=== PATIENT | male | born 1960 | race Caucasian/White ===

== ENCOUNTER 2018-07-19 11:09 | Outpatient (CLI) | payer MEDICAID, SELFPAY ==
[2018-07-19 11:48] LABS: INR 1.1 (1.0-3.5); Prothrombin Time 11.1 sec (9.3-10.8)
== END 2018-07-19 11:29 ==
PROVIDERS: PCP Physician Assistant Medical; Visit Provider Internal Medicine Cardiovascular Disease
DX: I48.0 Paroxysmal atrial fibrillation (principal)
CPT/HCPCS: 36415; 85610

== ENCOUNTER 2018-07-23 12:13 | Outpatient (CLI) | payer MEDICAID, SELFPAY ==
[2018-07-23 12:49] LABS: INR 1.4 (1.0-3.5); Prothrombin Time 13.6 sec (9.3-10.8)
== END 2018-07-23 12:33 ==
PROVIDERS: PCP Physician Assistant Medical; Visit Provider Internal Medicine Cardiovascular Disease
DX: I48.0 Paroxysmal atrial fibrillation (principal); Z79.01 Long term (current) use of anticoagulants
CPT/HCPCS: 36415; 85610

== ENCOUNTER 2018-07-30 13:39 | Outpatient (CLI) | payer MEDICAID, SELFPAY ==
[2018-07-30 14:26] LABS: INR 1.6 (1.0-3.5); Prothrombin Time 15.8 sec (9.3-10.8)
== END 2018-07-30 13:59 ==
PROVIDERS: PCP Physician Assistant Medical; Visit Provider Internal Medicine Cardiovascular Disease
DX: I48.0 Paroxysmal atrial fibrillation (principal); Z79.01 Long term (current) use of anticoagulants
CPT/HCPCS: 36415; 85610

== ENCOUNTER 2018-08-06 10:15 | Outpatient (CLI) | payer MEDICAID, SELFPAY ==
[2018-08-06 12:48] LABS: Prothrombin Time 20.3 sec (9.3-11.0)
== END 2018-08-06 10:35 ==
PROVIDERS: PCP Physician Assistant Medical; Visit Provider Internal Medicine Cardiovascular Disease
DX: I48.0 Paroxysmal atrial fibrillation (principal); Z79.01 Long term (current) use of anticoagulants
CPT/HCPCS: 36415; 85610

== ENCOUNTER 2018-08-13 09:52 | Outpatient (CLI) | payer MEDICAID, SELFPAY ==
[2018-08-13 10:20] LABS: INR 1.7 (1.0-3.5); Prothrombin Time 16.7 sec (9.3-11.0)
== END 2018-08-13 10:12 ==
PROVIDERS: PCP Physician Assistant Medical; Visit Provider Internal Medicine Cardiovascular Disease
DX: I48.0 Paroxysmal atrial fibrillation (principal)
CPT/HCPCS: 36415; 85610

== ENCOUNTER 2018-08-20 11:21 | Outpatient (CLI) | payer MEDICAID, SELFPAY ==
[2018-08-20 12:05] LABS: INR 1.6 (1.0-3.5); Prothrombin Time 16.1 sec (9.3-11.0)
== END 2018-08-20 11:41 ==
PROVIDERS: PCP Physician Assistant Medical; Visit Provider Internal Medicine Cardiovascular Disease
DX: I48.0 Paroxysmal atrial fibrillation (principal)
CPT/HCPCS: 36415; 85610

== ENCOUNTER 2018-08-31 09:54 | Outpatient (CLI) | payer MEDICAID, SELFPAY ==
[2018-08-31 10:49] LABS: INR 1.9 (0.9-1.1); Prothrombin Time 19.3 sec (9.3-11.0)
== END 2018-08-31 10:14 ==
PROVIDERS: PCP Physician Assistant Medical; Visit Provider Internal Medicine Cardiovascular Disease
DX: I48.0 Paroxysmal atrial fibrillation (principal); Z79.01 Long term (current) use of anticoagulants
CPT/HCPCS: 36415; 85610

== ENCOUNTER 2018-09-07 10:24 | Outpatient (CLI) | payer MEDICAID, SELFPAY ==
[2018-09-07 11:29] LABS: INR 2.3 (0.9-1.1)
== END 2018-09-07 10:44 ==
PROVIDERS: PCP Physician Assistant Medical; Visit Provider Internal Medicine Cardiovascular Disease
DX: I48.0 Paroxysmal atrial fibrillation (principal); Z79.01 Long term (current) use of anticoagulants
CPT/HCPCS: 36415; 85610

== ENCOUNTER 2018-09-14 11:25 | Outpatient (CLI) | payer MEDICAID, SELFPAY ==
[2018-09-14 12:05] LABS: INR 2.3 (0.9-1.1); Prothrombin Time 22.8 sec (9.3-11.0)
== END 2018-09-14 11:45 ==
PROVIDERS: PCP Physician Assistant Medical; Visit Provider Internal Medicine Cardiovascular Disease
DX: I48.0 Paroxysmal atrial fibrillation (principal); Z79.01 Long term (current) use of anticoagulants
CPT/HCPCS: 36415; 85610

== ENCOUNTER 2018-10-05 10:03 | Outpatient (CLI) | payer MEDICAID, SELFPAY ==
[2018-10-05 10:33] LABS: INR 1.7 (0.9-1.1); Prothrombin Time 16.7 sec (9.3-11.0)
== END 2018-10-05 10:23 ==
PROVIDERS: PCP Physician Assistant Medical; Visit Provider Internal Medicine Cardiovascular Disease
DX: I48.0 Paroxysmal atrial fibrillation (principal)
CPT/HCPCS: 36415; 85610

== ENCOUNTER 2018-10-12 11:43 | Outpatient (CLI) | payer MEDICAID, SELFPAY ==
[2018-10-12 12:56] LABS: INR 2.2 (0.9-1.1); Prothrombin Time 22.3 sec (9.3-11.0)
== END 2018-10-12 12:03 ==
PROVIDERS: PCP Physician Assistant Medical; Visit Provider Internal Medicine Cardiovascular Disease
DX: I48.0 Paroxysmal atrial fibrillation (principal); Z79.01 Long term (current) use of anticoagulants
CPT/HCPCS: 36415; 85610

== ENCOUNTER 2018-10-19 12:37 | Outpatient (CLI) | payer MEDICAID, SELFPAY ==
[2018-10-19 14:45] LABS: INR 2.1 (0.9-1.1); Prothrombin Time 21.1 sec (9.3-11.0)
== END 2018-10-19 12:57 ==
PROVIDERS: PCP Physician Assistant Medical; Visit Provider Internal Medicine Cardiovascular Disease
DX: I48.0 Paroxysmal atrial fibrillation (principal); Z79.01 Long term (current) use of anticoagulants
CPT/HCPCS: 36415; 85610

== ENCOUNTER 2018-10-26 11:17 | Outpatient (CLI) | payer MEDICAID, SELFPAY ==
[2018-10-26 12:25] LABS: Prothrombin Time 20.6 sec (9.3-11.0)
== END 2018-10-26 11:37 ==
PROVIDERS: PCP Physician Assistant Medical; Visit Provider Internal Medicine Cardiovascular Disease
DX: I48.0 Paroxysmal atrial fibrillation (principal); Z79.01 Long term (current) use of anticoagulants
CPT/HCPCS: 36415; 85610

== ENCOUNTER 2018-11-09 11:14 | Outpatient (CLI) | payer MEDICAID, SELFPAY ==
[2018-11-09 12:03] LABS: INR 1.8 (0.9-1.1); Prothrombin Time 18.4 sec (9.3-11.0)
== END 2018-11-09 11:34 ==
PROVIDERS: PCP Physician Assistant Medical; Visit Provider Internal Medicine Cardiovascular Disease
DX: I48.0 Paroxysmal atrial fibrillation (principal)
CPT/HCPCS: 36415; 85610

== ENCOUNTER 2018-11-16 12:18 | Outpatient (CLI) | payer MEDICAID, SELFPAY ==
[2018-11-16 12:55] LABS: INR 1.9 (0.9-1.1); Prothrombin Time 19.4 sec (9.3-11.0)
== END 2018-11-16 12:38 ==
PROVIDERS: PCP Physician Assistant Medical; Visit Provider Internal Medicine Cardiovascular Disease
DX: I48.0 Paroxysmal atrial fibrillation (principal)
CPT/HCPCS: 36415; 85610

== ENCOUNTER 2018-11-23 10:15 | Outpatient (CLI) | payer MEDICAID, SELFPAY ==
[2018-11-23 10:40] LABS: Prothrombin Time 20.2 sec (9.3-11.0)
== END 2018-11-23 10:35 ==
PROVIDERS: PCP Nurse Practitioner Family; Visit Provider Internal Medicine Cardiovascular Disease
DX: I48.0 Paroxysmal atrial fibrillation (principal); Z79.01 Long term (current) use of anticoagulants
CPT/HCPCS: 36415; 85610

== ENCOUNTER 2018-11-30 10:26 | Outpatient (CLI) | payer MEDICAID, SELFPAY ==
[2018-11-30 11:14] LABS: Prothrombin Time 20.4 sec (9.3-11.0)
== END 2018-11-30 10:46 ==
PROVIDERS: PCP Nurse Practitioner Family; Visit Provider Internal Medicine Cardiovascular Disease
DX: I48.0 Paroxysmal atrial fibrillation (principal); Z79.01 Long term (current) use of anticoagulants
CPT/HCPCS: 36415; 85610

== ENCOUNTER 2018-12-14 11:17 | Outpatient (CLI) | payer MEDICAID, SELFPAY ==
[2018-12-14 12:36] LABS: INR 2.4 (0.9-1.1)
== END 2018-12-14 11:37 ==
PROVIDERS: PCP Nurse Practitioner Family; Visit Provider Internal Medicine Cardiovascular Disease
DX: I48.0 Paroxysmal atrial fibrillation (principal); Z79.01 Long term (current) use of anticoagulants
CPT/HCPCS: 36415; 85610

== ENCOUNTER 2019-01-11 15:05 | Outpatient (CLI) | payer MEDICAID, SELFPAY ==
[2019-01-11 15:38] LABS: Prothrombin Time 25.7 sec (9.3-11.0)
[2019-01-11 15:40] LABS: INR 2.5 (0.9-1.1)
== END 2019-01-11 15:25 ==
PROVIDERS: PCP Nurse Practitioner Family; Visit Provider Internal Medicine Cardiovascular Disease
DX: I48.0 Paroxysmal atrial fibrillation (principal); Z79.01 Long term (current) use of anticoagulants
CPT/HCPCS: 36415; 85610

== ENCOUNTER 2019-02-14 10:24 | Outpatient (CLI) | payer MEDICAID, SELFPAY ==
[2019-02-14 11:19] LABS: Prothrombin Time 25.7 sec (9.3-11.0)
[2019-02-14 11:23] LABS: INR 2.5 (0.9-1.1)
== END 2019-02-14 10:44 ==
PROVIDERS: PCP Nurse Practitioner Family; Visit Provider Internal Medicine Cardiovascular Disease
DX: I48.0 Paroxysmal atrial fibrillation (principal)
CPT/HCPCS: 36415; 85610

== ENCOUNTER 2019-04-11 10:05 | Outpatient (CLI) | payer MEDICAID, SELFPAY ==
[2019-04-11 10:42] LABS: HCT 46.2 % (40.0-50.0); HGB 15.5 g/dL (13.5-17.5); Mean Corp. HGB Concentration 33.5 g/dL (32.0-36.0); Mean Corpuscular Hemoglobin 28.8 pg (27.0-33.0); Mean Corpuscular Volume 85.7 fL (80-95); Mean Platelet Volume 10.5 fL (8.0-11.0); RBC 5.39 m/cumm (4.50-6.00); RBC Distribution Width 14.1 % (11.8-14.1); White Blood Cell Count 3.69 k/cumm (4.4-10.8)
[2019-04-11 10:45] LABS: INR 2.7 (0.9-1.1); Prothrombin Time 26.8 sec (9.3-11.0)
[2019-04-11 11:12] LABS: Platelet Count 84 x1000/uL (130-400)
[2019-04-11 11:25] LABS: ALT 37 U/L (12-78); AST 22 U/L (15-37); Albumin 3.8 g/dL (3.4-5.0); Alkaline Phosphatase 63 U/L (46-116); Anion Gap 14.2 mmol/L (3-11); BUN 14 mg/dL (7-18); C-Reactive Protein 0.17 mg/dL (0.0-0.3); CO2 24.8 mmol/L (21.0-32.0); Calcium 8.9 mg/dL (8.5-10.1); Chloride 103 mmol/L (98-107); Glucose 209 mg/dL (70-100); Potassium 4.2 mmol/L (3.5-5.1); Sodium 142 mmol/L (136-145); Total Protein 7.6 g/dL (6.4-8.2)
[2019-04-11 12:01] LABS: ESR 13 mm/hr (1-20)
== END 2019-04-11 10:25 ==
PROVIDERS: PCP Family Medicine; Visit Provider Internal Medicine Cardiovascular Disease
DX: I10 Essential (primary) hypertension (principal); E11.9 Type 2 diabetes mellitus without complications; M25.551 Pain in right hip; M25.552 Pain in left hip; I48.0 Paroxysmal atrial fibrillation; Z79.01 Long term (current) use of anticoagulants
CPT/HCPCS: 36415; 80053; 85027; 85652; 85610; 86140

== ENCOUNTER 2019-05-16 10:55 | Outpatient (CLI) | payer MEDICAID, SELFPAY ==
[2019-05-16 11:28] LABS: INR 2.9 (0.9-1.1); Prothrombin Time 28.6 sec (9.3-11.0)
== END 2019-05-16 11:15 ==
PROVIDERS: PCP Family Medicine; Visit Provider Internal Medicine Cardiovascular Disease
DX: I48.0 Paroxysmal atrial fibrillation (principal)
CPT/HCPCS: 36415; 85610

== ENCOUNTER 2019-06-14 10:38 | Outpatient (CLI) | payer MEDICAID, SELFPAY ==
[2019-06-14 11:45] LABS: INR 2.6 (0.9-1.1); Prothrombin Time 25.1 sec (9.3-11.0)
== END 2019-06-14 10:58 ==
PROVIDERS: Internal Medicine Cardiovascular Disease; PCP Family Medicine; Visit Provider Internal Medicine Cardiovascular Disease
DX: I48.0 Paroxysmal atrial fibrillation (principal); Z79.01 Long term (current) use of anticoagulants
CPT/HCPCS: 36415; 85610

== ENCOUNTER 2019-07-15 09:30 | Outpatient (CLI) | payer MEDICAID, SELFPAY ==
[2019-07-15 10:51] LABS: INR 2.6 (0.9-1.1); Prothrombin Time 25.6 sec (9.3-11.0)
== END 2019-07-15 09:50 ==
PROVIDERS: PCP Family Medicine; Visit Provider Internal Medicine Cardiovascular Disease
DX: I48.0 Paroxysmal atrial fibrillation (principal)
CPT/HCPCS: 36415; 85610

== ENCOUNTER 2019-08-19 11:16 | Outpatient (CLI) | payer MEDICAID, SELFPAY ==
[2019-08-19 12:01] LABS: INR 3.1 (0.9-1.1)
== END 2019-08-19 11:36 ==
PROVIDERS: PCP Family Medicine; Visit Provider Internal Medicine Cardiovascular Disease
DX: I48.0 Paroxysmal atrial fibrillation (principal); Z79.01 Long term (current) use of anticoagulants
CPT/HCPCS: 36415; 85610

== ENCOUNTER 2019-08-26 09:36 | Outpatient (CLI) | payer MEDICAID, SELFPAY ==
[2019-08-26 10:34] LABS: INR 2.8 (0.9-1.1); Prothrombin Time 27.4 sec (9.3-11.0)
== END 2019-08-26 09:56 ==
PROVIDERS: PCP Family Medicine; Visit Provider Internal Medicine Cardiovascular Disease
DX: I48.0 Paroxysmal atrial fibrillation (principal); Z79.01 Long term (current) use of anticoagulants
CPT/HCPCS: 36415; 85610

== ENCOUNTER 2019-09-02 09:03 | Outpatient (CLI) | payer MEDICAID, SELFPAY ==
[2019-09-02 10:16] LABS: INR 2.5 (0.9-1.1); Prothrombin Time 24.3 sec (9.3-11.0)
== END 2019-09-02 09:23 ==
PROVIDERS: PCP Family Medicine; Visit Provider Internal Medicine Cardiovascular Disease
DX: I48.0 Paroxysmal atrial fibrillation (principal); Z79.01 Long term (current) use of anticoagulants
CPT/HCPCS: 36415; 85610

== ENCOUNTER 2019-09-08 10:50 | Outpatient (REF) | payer MEDICAID, SELFPAY ==
[2019-09-08 22:19] LABS: HCT 43.2 % (40.0-50.0); HGB 14.5 g/dL (13.5-17.5); Mean Corp. HGB Concentration 33.6 g/dL (32.0-36.0); Mean Corpuscular Hemoglobin 28.8 pg (27.0-33.0); Mean Corpuscular Volume 85.9 fL (80-95); Mean Platelet Volume 11.2 fL (8.0-11.0); Platelet Count 100 x1000/uL (130-400); RBC 5.03 m/cumm (4.50-6.00); White Blood Cell Count 4.89 k/cumm (4.4-10.8)
== END 2019-09-08 11:10 ==
LOC: NCHCN 10:50
PROVIDERS: PCP Family Medicine; Visit Provider Family Medicine
DX: I10 Essential (primary) hypertension (principal); E11.9 Type 2 diabetes mellitus without complications; K76.0 Fatty (change of) liver, not elsewhere classified; D69.6 Thrombocytopenia, unspecified; E88.81 Metabolic syndrome and other insulin resistance; E66.9 Obesity, unspecified
CPT/HCPCS: 85027

== ENCOUNTER 2019-09-16 09:42 | Outpatient (CLI) | payer MEDICAID, SELFPAY ==
[2019-09-16 10:29] LABS: Prothrombin Time 24.1 sec (9.3-11.0)
[2019-09-16 10:31] LABS: INR 2.4 (0.9-1.1)
== END 2019-09-16 10:02 ==
PROVIDERS: PCP Family Medicine; Visit Provider Internal Medicine Cardiovascular Disease
DX: I48.0 Paroxysmal atrial fibrillation (principal); Z79.01 Long term (current) use of anticoagulants
CPT/HCPCS: 36415; 85610

== ENCOUNTER 2019-10-17 11:20 | Outpatient (CLI) | payer MEDICAID, SELFPAY ==
[2019-10-17 12:00] LABS: INR 2.9 (0.9-1.1); Prothrombin Time 28.1 sec (9.3-11.0)
== END 2019-10-17 11:40 ==
PROVIDERS: PCP Family Medicine; Visit Provider Internal Medicine Cardiovascular Disease
DX: I48.0 Paroxysmal atrial fibrillation (principal)
CPT/HCPCS: 36415; 85610

== ENCOUNTER 2020-01-04 03:31 | Outpatient (CLI) | payer MEDICAID, SELFPAY ==
[2020-01-04 11:28] LABS: Prothrombin Time 24.1 sec (9.3-11.0)
[2020-01-04 11:33] LABS: INR 2.4 (0.9-1.1)
== END 2020-01-04 03:51 ==
PROVIDERS: PCP Family Medicine; Visit Provider Internal Medicine Cardiovascular Disease
DX: I48.0 Paroxysmal atrial fibrillation (principal)
CPT/HCPCS: 36415; 85610

== ENCOUNTER 2020-02-02 02:28 | Outpatient (CLI) | payer MEDICAID, SELFPAY ==
[2020-02-02 14:06] LABS: INR 3.9 (0.9-1.1)
== END 2020-02-02 02:48 ==
PROVIDERS: PCP Family Medicine; Visit Provider Internal Medicine Cardiovascular Disease
DX: I48.0 Paroxysmal atrial fibrillation (principal); Z79.01 Long term (current) use of anticoagulants
CPT/HCPCS: 36415; 85610

== ENCOUNTER 2020-02-10 04:06 | Outpatient (CLI) | payer MEDICAID, SELFPAY ==
[2020-02-10 15:15] LABS: Prothrombin Time 27.9 sec (9.3-11.0)
[2020-02-10 15:21] LABS: INR 2.8 (0.9-1.1)
== END 2020-02-10 04:26 ==
PROVIDERS: PCP Family Medicine; Visit Provider Internal Medicine Cardiovascular Disease
DX: I48.0 Paroxysmal atrial fibrillation (principal)
CPT/HCPCS: 36415; 85610

== ENCOUNTER 2020-02-17 01:49 | Outpatient (CLI) | payer MEDICAID, SELFPAY ==
[2020-02-17 13:23] LABS: INR 3.1 (0.9-1.1); Prothrombin Time 30.3 sec (9.3-11.0)
== END 2020-02-17 02:09 ==
PROVIDERS: PCP Family Medicine; Visit Provider Internal Medicine Cardiovascular Disease
DX: I48.0 Paroxysmal atrial fibrillation (principal)
CPT/HCPCS: 36415; 85610

== ENCOUNTER 2020-02-23 02:26 | Outpatient (CLI) | payer MEDICAID, SELFPAY ==
[2020-02-23 12:14] LABS: INR 2.5 (0.9-1.1); Prothrombin Time 24.9 sec (9.3-11.0)
== END 2020-02-23 02:46 ==
PROVIDERS: PCP Family Medicine; Visit Provider Internal Medicine Cardiovascular Disease
DX: I48.0 Paroxysmal atrial fibrillation (principal)
CPT/HCPCS: 36415; 85610

== ENCOUNTER 2020-03-01 01:20 | Outpatient (CLI) | payer MEDICAID, SELFPAY ==
[2020-03-01 14:50] LABS: INR 3.2 (0.9-1.1); Prothrombin Time 31.1 sec (9.3-11.0)
== END 2020-03-01 01:40 ==
PROVIDERS: PCP Family Medicine; Visit Provider Internal Medicine Cardiovascular Disease
DX: I48.0 Paroxysmal atrial fibrillation (principal)
CPT/HCPCS: 36415; 85610

== ENCOUNTER 2020-03-08 02:26 | Outpatient (CLI) | payer MEDICAID, SELFPAY ==
[2020-03-08 13:54] LABS: INR 3.1 (0.9-1.1); Prothrombin Time 30.5 sec (9.3-11.0)
== END 2020-03-08 02:46 ==
PROVIDERS: PCP Family Medicine; Visit Provider Internal Medicine Cardiovascular Disease
DX: I48.0 Paroxysmal atrial fibrillation (principal)
CPT/HCPCS: 36415; 85610

== ENCOUNTER 2020-03-15 01:34 | Outpatient (CLI) | payer MEDICAID, SELFPAY ==
[2020-03-15 10:25] LABS: HCT 42.9 % (40.0-50.0); HGB 14.4 g/dL (13.5-17.5); Mean Corp. HGB Concentration 33.6 g/dL (32.0-36.0); Mean Corpuscular Hemoglobin 29.3 pg (27.0-33.0); Mean Corpuscular Volume 87.2 fL (80-95); Mean Platelet Volume 10.2 fL (8.0-11.0); RBC 4.92 m/cumm (4.50-6.00); RBC Distribution Width 14.2 % (11.8-14.1); White Blood Cell Count 4.52 k/cumm (4.4-10.8)
[2020-03-15 10:39] LABS: Platelet Count 92 x1000/uL (130-400)
[2020-03-15 10:44] LABS: Hemoglobin A1C 6.7 % (3.8-5.6)
[2020-03-15 10:47] LABS: Prothrombin Time 27.9 sec (9.3-11.0)
[2020-03-15 10:49] LABS: INR 2.8 (0.9-1.1)
[2020-03-15 10:59] LABS: ALT 40 U/L (16-63); AST 34 U/L (15-37); Albumin 3.8 g/dL (3.4-5.0); Alkaline Phosphatase 61 U/L (46-116); Anion Gap 10.2 mmol/L (3-11); BUN 18 mg/dL (7-18); Bilirubin, Total 1.1 mg/dL (0.2-1.0); C-Reactive Protein 0.25 mg/dL (0.0-0.3); CO2 28.8 mmol/L (21.0-32.0); CREATININE 1.08 mg/dL (0.70-1.30); Calcium 8.7 mg/dL (8.5-10.1); Chloride 102 mmol/L (98-107); Glucose 219 mg/dL (74-106); Magnesium 1.8 mg/dL (1.8-2.4); Potassium 4.4 mmol/L (3.5-5.1); Sodium 141 mmol/L (136-145); Total Protein 7.5 g/dL (6.4-8.2); Uric Acid 3.9 mg/dL (3.5-7.2)
[2020-03-15 11:01] LABS: ESR 24 mm/hr (1-20)
== END 2020-03-15 01:54 ==
PROVIDERS: PCP Family Medicine; Visit Provider Internal Medicine Cardiovascular Disease
DX: I48.0 Paroxysmal atrial fibrillation (principal); D69.6 Thrombocytopenia, unspecified; E88.81 Metabolic syndrome and other insulin resistance; I48.91 Unspecified atrial fibrillation; M10.9 Gout, unspecified; E11.9 Type 2 diabetes mellitus without complications; I10 Essential (primary) hypertension; Z00.00 Encounter for general adult medical examination without abnormal findings
CPT/HCPCS: 36415; 80053; 85027; 85652; 83036; 83735; 84550; 85610; 86140

== ENCOUNTER 2020-03-22 03:05 | Outpatient (CLI) | payer MEDICAID, SELFPAY ==
[2020-03-22 10:27] LABS: Prothrombin Time 27.9 sec (9.3-11.0)
[2020-03-22 10:29] LABS: INR 2.8 (0.9-1.1)
== END 2020-03-22 03:25 ==
PROVIDERS: PCP Family Medicine; Visit Provider Internal Medicine Cardiovascular Disease
DX: I48.0 Paroxysmal atrial fibrillation (principal)
CPT/HCPCS: 36415; 85610

== ENCOUNTER 2020-04-09 02:02 | Outpatient (CLI) | payer MEDICAID, SELFPAY ==
[2020-04-09 15:10] LABS: INR 3.5 (0.9-1.1); Prothrombin Time 33.7 sec (9.3-11.0)
== END 2020-04-09 02:22 ==
PROVIDERS: PCP Family Medicine; Visit Provider Internal Medicine Cardiovascular Disease
DX: I48.0 Paroxysmal atrial fibrillation (principal)
CPT/HCPCS: 36415; 85610

== ENCOUNTER 2020-04-16 02:30 | Outpatient (CLI) | payer MEDICAID, SELFPAY ==
[2020-04-16 14:27] LABS: INR 2.7 (0.9-1.1); Prothrombin Time 26.5 sec (9.3-11.0)
== END 2020-04-16 02:50 ==
PROVIDERS: PCP Family Medicine; Visit Provider Internal Medicine Cardiovascular Disease
DX: I48.19 Other persistent atrial fibrillation (principal)
CPT/HCPCS: 36415; 85610

== ENCOUNTER 2020-04-23 04:43 | Outpatient (CLI) | payer MEDICAID, SELFPAY ==
[2020-04-23 15:38] LABS: INR 2.9 (0.9-1.1); Prothrombin Time 28.4 sec (9.3-11.0)
== END 2020-04-23 05:03 ==
PROVIDERS: PCP Family Medicine; Visit Provider Internal Medicine Cardiovascular Disease
DX: I48.19 Other persistent atrial fibrillation (principal)
CPT/HCPCS: 36415; 85610

== ENCOUNTER 2020-05-24 05:09 | Outpatient (CLI) | payer MEDICAID, SELFPAY ==
[2020-05-24 12:30] LABS: INR 3.2 (0.9-1.1); Prothrombin Time 31.1 sec (9.3-11.0)
== END 2020-05-24 05:29 ==
PROVIDERS: PCP Family Medicine; Visit Provider Internal Medicine Cardiovascular Disease
DX: I48.0 Paroxysmal atrial fibrillation (principal)
CPT/HCPCS: 36415; 85610

== ENCOUNTER 2020-06-25 03:29 | Outpatient (CLI) | payer MEDICAID, SELFPAY ==
[2020-06-25 10:54] LABS: INR 3.6 (0.9-1.1)
== END 2020-06-25 03:49 ==
PROVIDERS: PCP Family Medicine; Visit Provider Internal Medicine Cardiovascular Disease
DX: I48.0 Paroxysmal atrial fibrillation (principal)
CPT/HCPCS: 36415; 85610

== ENCOUNTER 2020-07-02 03:35 | Outpatient (CLI) | payer MEDICAID, SELFPAY ==
[2020-07-02 14:59] LABS: INR 2.6 (0.9-1.1)
== END 2020-07-02 03:55 ==
PROVIDERS: PCP Family Medicine; Visit Provider Internal Medicine Cardiovascular Disease
DX: I48.0 Paroxysmal atrial fibrillation (principal)
CPT/HCPCS: 36415; 85610

== ENCOUNTER 2020-07-18 03:09 | Outpatient (CLI) | payer MEDICAID, SELFPAY ==
[2020-07-18 10:28] LABS: INR 2.4 (0.9-1.1)
== END 2020-07-18 03:29 ==
PROVIDERS: PCP Family Medicine; Visit Provider Internal Medicine Cardiovascular Disease
DX: I48.91 Unspecified atrial fibrillation (principal); Z79.01 Long term (current) use of anticoagulants
CPT/HCPCS: 36415; 85610

== ENCOUNTER 2020-07-25 03:41 | Outpatient (CLI) | payer MEDICAID, SELFPAY ==
[2020-07-25 10:58] LABS: INR 2.6 (0.9-1.1); Prothrombin Time 25.2 sec (9.3-11.0)
== END 2020-07-25 04:01 ==
PROVIDERS: PCP Family Medicine; Visit Provider Internal Medicine Cardiovascular Disease
DX: I48.19 Other persistent atrial fibrillation (principal)
CPT/HCPCS: 36415; 85610

== ENCOUNTER 2020-08-08 01:41 | Outpatient (CLI) | payer MEDICAID, SELFPAY ==
[2020-08-08 13:57] LABS: INR 2.5 (0.9-1.1)
== END 2020-08-08 02:01 ==
PROVIDERS: PCP Family Medicine; Visit Provider Internal Medicine Cardiovascular Disease
DX: I48.0 Paroxysmal atrial fibrillation (principal)
CPT/HCPCS: 36415; 85610

== ENCOUNTER 2020-10-01 01:07 | Outpatient (CLI) | payer MEDICAID, SELFPAY ==
--- NOTE | 2020-10-01 | DI.US_ITS ---
EXAM: US ABDOMEN CLINICAL HISTORY: FATTY LIVER DISEASE,K76.0,THROMBOCYTOPENIA,D69.6 TECHNIQUE: Ultrasound abdomen performed using standard protocol. COMPARISON: CT RENAL COLIC WO CONTRAST from 09/24/2008 CT ABD PELVIS WO CONTRAST from 10/02/2009 FINDINGS: ABDOMINAL AORTA AND IVC: Visualized portions normal caliber. PANCREAS: Normal where visualized. LIVER: There is diffuse increased echogenicity consistent with fatty infiltration. The liver measure s 20 cm in length. Hepatopedal flow in the Portal Vein. GALLBLADDER: No evidence of cholelithiasis. No evidence of wall thickening. No pericholecystic fluid identified. BILIARY SYSTEM: Common bile duct measures < 7 mm. No intrahepatic biliary ductal dilation. PURI'S SIGN: Negative. KIDNEYS: Kidneys are symmetric in size. No evidence of renal calculi. No evidence of hydronephrosis. There is a 1.1 x 1.1 x 1 cm simple right renal cyst. No further follow-up is recommended. SPLEEN: The liver measures 14.3 cm in length. ASCITES: None seen. IMPRESSION: Hepatosplenomegaly and hepatic steatosis. DATA REPOSITORY:
--- NOTE | 2020-10-01 08:23 | DI.RAD_ITS ---
EXAM: XR HIP PELVIS ADULT BL CLINICAL HISTORY: BILAT HIP PAIN. TECHNIQUE: 2D digital imaging was performed. COMPARISON: CR Pelvis - 1 View from 04/06/2017 FINDINGS: In the right hip, there are marked degenerative changes characterized by marked joint space narrowing , subchondral sclerosis and cysts and periarticular spurring. In the left hip, moderately severe degenerative changes are present. Findings seen include joint spa ce narrowing, subchondral sclerosis and cysts and periarticular spurring. Moderately severe degenerative changes are seen in the lower lumbar spine. Degenerative changes are seen at the sacroiliac joints. No acute fracture or subluxation is seen. Atherosclerosis is present . IMPRESSION: Marked right and moderately severe left hip osteoarthritis. DATA REPOSITORY: RADIATION DOSE DELIVERED:
== END 2020-10-01 01:08 | disposition home or self-care (01) ==
LOC: DI 01:07
PROVIDERS: PCP Family Medicine; Visit Provider Family Medicine
DX: M16.0 Bilateral primary osteoarthritis of hip (principal); M47.816 Spondylosis without myelopathy or radiculopathy, lumbar region; M46.1 Sacroiliitis, not elsewhere classified; K76.0 Fatty (change of) liver, not elsewhere classified
CPT/HCPCS: 73521; 76700

== ENCOUNTER 2020-11-27 13:37 | Outpatient (CLI) | payer MEDICAID, SELFPAY ==
--- NOTE | 2020-11-27 13:00 | DI.RAD_ITS ---
EXAM: XR PELVIS AP CLINICAL HISTORY: preop TECHNIQUE: COMPARISON: CR XR HIP PELVIS ADULT BL from 10/01/2020 FINDINGS: Single AP view of the pelvis was obtained with template ball. There are severe degenerative changes of both hips. IMPRESSION: RADIATION DOSE DELIVERED: Total DLP
== END 2020-11-27 13:38 | disposition home or self-care (01) ==
LOC: DIORS 13:38
PROVIDERS: PCP Family Medicine; Referring Provider Family Medicine; Visit Provider Physician Assistant Surgical
DX: M16.0 Bilateral primary osteoarthritis of hip (principal)
CPT/HCPCS: 72170

== ENCOUNTER 2020-12-03 03:19 | Outpatient (CLI) | payer MEDICAID, SELFPAY ==
[2020-12-03 10:42] LABS: Source Nasal/Nares
[2020-12-03 16:19] LABS: COVID-19 PCR Negative (Negative)
== END 2020-12-03 03:20 | disposition home or self-care (01) ==
LOC: LBO 03:19
PROVIDERS: PCP Family Medicine; Visit Provider Student in an Organized Health Care Education/Training Program
DX: Z20.822 Contact with and (suspected) exposure to COVID-19 (principal); Z01.818 Encounter for other preprocedural examination
CPT/HCPCS: 87635

== ENCOUNTER 2020-12-03 04:16 | Outpatient (CLI) | payer MEDICAID, SELFPAY ==
[2020-12-03 10:09] LABS: HCT 45.1 % (40.0-50.0); MCH 29.9 pg (27.0-33.0); MCHC 33.3 % (32.0-36.0); MPV 10.3 fL (8.0-11.0); RBC 5.01 10^6/uL (4.36-5.78); RDW 13.2 % (11.8-14.1); RDW-SD 43.7 fL
[2020-12-03 10:28] LABS: Hemoglobin A1C 6.3 % (<5.7)
[2020-12-03 10:38] LABS: Platelet Count 97 10^3/uL (130-400)
[2020-12-03 10:50] LABS: Anion Gap 10.6 mmol/L (3-11); BUN 26 mg/dL (7-18); CO2 27.4 mmol/L (21.0-32.0); Calcium 9.5 mg/dL (8.5-10.1); Chloride 103 mmol/L (98-107); Glucose 152 mg/dL (74-106); Potassium 4.4 mmol/L (3.5-5.1); Sodium 141 mmol/L (136-145)
[2020-12-03 10:53] LABS: Iron 104 ug/dL (65-175)
[2020-12-03 10:54] LABS: ALT 45 U/L (16-63); AST 28 U/L (15-37); Albumin 4.2 g/dL (3.4-5.0); Alkaline Phosphatase 66 U/L (46-116); Bilirubin, Direct 0.4 mg/dL (0.0-0.2); Bilirubin, Total 1.9 mg/dL (0.2-1.0); Total Protein 8.1 g/dL (6.4-8.2)
[2020-12-03 11:19] LABS: Ferritin 83 ng/mL (26-388)
[2020-12-04 09:30] LABS: Alpha 1 Antitrypsin,Serum 144 mg/dL (90-200); Transferrin 239 mg/dL (201-352)
[2020-12-04 09:47] LABS: Hepatitis B Surface Ag Negative (Negative)
[2020-12-04 10:28] LABS: Hepatitis C Ab w Rflx HCV PCR Negative (Negative)
[2020-12-04 10:31] LABS: Hep A Total Ab w Rflx IgM Negative (Negative)
[2020-12-04 15:08] LABS: Ceruloplasmin 21.4 mg/dL
[2020-12-04 15:27] LABS: ANA Interpretation Negative (Negative)
[2020-12-05 10:41] LABS: ALT 36 U/L (7-55); AST, S 36 U/L (8 - 48); Alpha-2-Macroglobulin 328 mg/dL (100 - 280); Apoliprotein A1 114 mg/dL (>=120); Bilirubin, Total 1.7 mg/dL (<=1.2); Cholesterol, Total, S 193 mg/dL; FibroTest Interpretation severe fibrosis; FibroTest Stage F4; GGT 63 U/L (8 - 61); Glucose, Fasting, P 145 mg/dL (70 - 100); Haptoglobin 59 mg/dL (30 - 200); NashTest 2 Grade N3; NashTest 2 Score 0.82; SteatoTest 2 Score 0.66; Triglycerides, S 161 mg/dL
[2020-12-05 15:05] LABS: Mitochondrial Ab, M2 <0.1 U; Smooth Muscle Ab Screen Negative (Negative)
[2020-12-05 23:33] LABS: Liver/Kidney Microsome Type 1 <5.0 U
== END 2020-12-03 04:17 | disposition home or self-care (01) ==
LOC: LBO 04:16
PROVIDERS: Nurse Practitioner Adult Health; PCP Family Medicine; Visit Provider Student in an Organized Health Care Education/Training Program
DX: M25.551 Pain in right hip (principal); M16.11 Unilateral primary osteoarthritis, right hip; E11.9 Type 2 diabetes mellitus without complications; D69.6 Thrombocytopenia, unspecified; I10 Essential (primary) hypertension; Z11.59 Encounter for screening for other viral diseases; Z01.818 Encounter for other preprocedural examination; Z01.812 Encounter for preprocedural laboratory examination
CPT/HCPCS: 36415; 80048; 80076; 82390; 83516; 85027; 86709; 86803; 86850; 86900; 86901; 87340; 82103; 82728; 83036; 83540; 84466; 86038; 86255; 86704

== ENCOUNTER 2020-12-05 06:07 | Day surgery (SDC) | payer MEDICAID, SELFPAY ==
[2020-12-05] VITALS (9 sets, daily range): BP systolic 115–158; BP diastolic 78–97; PULSE 60–102; RESP 13–20; TEMP 36.1–36.5; O2SAT 94–100
[2020-12-05 06:47] LABS: INR 1.2 (0.9-1.1); Prothrombin Time 11.8 sec (9.3-11.0)
[2020-12-05] MEDS: Acetaminophen 500 MG TAB 1000 MG PO ×2 (06:57→13:55)
[2020-12-05] MEDS: Celecoxib 200 MG CAP 400 MG PO (06:58)
[2020-12-05] MEDS: Lactated Ringers 1,000 ML 80 ML IV (07:15)
--- NOTE | 2020-12-05 07:30 | DI.RAD_ITS ---
EXAM: XR HIP LT IN OR CLINICAL HISTORY: osteoarthritis left hip. TECHNIQUE: 2D digital imaging was performed. COMPARISON: No exams were available for comparison FINDINGS: Prosperous fight a during right hip arthroplasty. Submitted C-arm image reveals satisfactory position alignment of the components of the newly placed r ight hip prosthesis. No fracture or loosening evident. Total fluoroscopy time 35.8 seconds. Cumulative dose 10.74 mGy IMPRESSION: DATA REPOSITORY: RADIATION DOSE DELIVERED:
--- NOTE | 2020-12-05 07:33 | W.PM.DSUDISC ---
Documented by User: EMMANUEL Maravilla 12/05/20 09:36 Discharge Plan Disposition Patient Disposition: HOME Condition: Stable Discharge Details Reason For Visit: Right DEREK, Left Hip Injection Attending Provider: Adan Cortes Primary Care Provider: Marine Gooden V Home Meds and New Rx's Prescriptions: New celecoxib [Celebrex] 200 mg capsule 200 mg PO BID Qty: 60 RF: 0 oxycodone 5 mg tablet 5 mg PO Q4H PRNQty: 18 RF: 0 pantoprazole [Protonix] 40 mg tablet,delayed release (DR/EC) 40 mg PO DAILY Qty: 30 RF: 0 Continued atenolol 100 MG tablet 150 mg PO DAILY RF: 0 lisinopril 20 MG tablet 20 mg PO BID RF: 0 allopurinol 100 MG tablet 200 mg PO DAILY RF: 0 metformin 1,000 MG tablet 1,000 mg PO BID RF: 0 Levemir U-100 Insulin 100 UNIT/1 ML solution 15 u Sub-Q HS RF: 0 acetaminophen [Acetaminophen Extra Strength] 500 mg Tablet 1,000 mg PO BID PRNRF: 0 warfarin 5 mg tablet 5 mg PO DIRECTED RF: 0 Discharge Instructions Additional Instructions: Total Hip Discharge Instructions Activity: The most important activity is to walk. You should try to take short walks a few times a day. You have no restrictions on movement or positioning, but do not try to force what you do. You will find some stiffness and weakness with hip flexion (lifting your knee). Do not try to strengthen this too early, continue to practice walking and stairs and this will come. - Outpatient physical therapy can be helpful to help return you to a normal gait and improve your flexibility and strength. This can start around 2 weeks. For some patients, it?s not necessary. Usually this is determined at the time of discharge or at the first post-operative visit. - You should wear the GILBERT hose on both legs for 2 weeks. Dressing: Keep the surgical dressing in place for at least one week. After the first week it may be removed and replace with light gauze and tape or nothing. It may get wet after 3 days but avoid soaking the dressing. If it gets wet, just lightly pat dry. It is important to always keep some gauze between skin folds, especially when you are sitting. Spend some time with the wound exposed when you are lying flat as the incision does wrinkle onto itself. Medications: - You should take Tylenol and an anti-inflammatory Celebrex as your primary pain control medications. If the Celebrex is too expensive or not covered, please call the office for another alternative (Advil/Ibuprofen or Naproxen/Aleve). - You have been prescribed a stronger pain medication Oxycodone for breakthrough pain, take as needed as prescribed. - You have also been prescribed a stomach acid reduction agent Pantoprozole to help reduce stomach acid and reflux. - You restart your warfarin tonight as previously prescribed. This will also be beneficial for DVT prevention unless instructed otherwise. - If you have constipation you should take Colace or Miralax (both [id number]). It takes most people 3-4 days to have a bowel movement. Follow-up: 2 weeks If you have any acute concerns or questions, please do not hesitate to contact the office at [phone]. You may contact Dr. Cortes with any questions after hours through the hospital at [phone] or on his cell phone at [phone]. Stand Alone Forms: Anesthesia Discharge Inst. Referrals: Adan Cortes MD [ [facility] STAFF PHYSICIAN] - Equipment/Supplies: Walker Activity:: Activity as Tolerated Remove Dressings/Wound Care:: Do Not Remove Shower/Bathe:: 72 hours Diet:: As Tolerated Discharge Orders Discharge Orders: Discharge Order (Routine); Ordered 12/05/20 Ordered By: Marine Ospina DS: Diagnosis Discharge Diagnosis (1) Osteoarthritis of right hip: Status: Acute (2) Osteoarthritis of left hip: Status: Acute Documented by User: Adan Cortes MD 12/05/20 12:37 Discharge Plan Disposition Patient Disposition: HOME Condition: Stable Discharge Details Reason For Visit: Right DEREK, Left Hip Injection Attending Provider: Adan Cortes Primary Care Provider: Marine Gooden V Home Meds and New Rx's Prescriptions: New celecoxib [Celebrex] 200 mg capsule 200 mg PO BID Qty: 60 RF: 0 oxycodone 5 mg tablet 5 mg PO Q4H PRNQty: 18 RF: 0 pantoprazole [Protonix] 40 mg tablet,delayed release (DR/EC) 40 mg PO DAILY Qty: 30 RF: 0 Continued atenolol 100 MG tablet 150 mg PO DAILY RF: 0 lisinopril 20 MG tablet 20 mg PO BID RF: 0 allopurinol 100 MG tablet 200 mg PO DAILY RF: 0 metformin 1,000 MG tablet 1,000 mg PO BID RF: 0 Levemir U-100 Insulin 100 UNIT/1 ML solution 15 u Sub-Q HS RF: 0 acetaminophen [Acetaminophen Extra Strength] 500 mg Tablet 1,000 mg PO BID PRNRF: 0 warfarin 5 mg tablet 5 mg PO DIRECTED RF: 0 Discharge Instructions Additional Instructions: Total Hip Discharge Instructions Activity: The most important activity is to walk. You should try to take short walks a few times a day. You have no restrictions on movement or positioning, but do not try to force what you do. You will find some stiffness and weakness with hip flexion (lifting your knee). Do not try to strengthen this too early, continue to practice walking and stairs and this will come. - Outpatient physical therapy can be helpful to help return you to a normal gait and improve your flexibility and strength. This can start around 2 weeks. For some patients, it?s not necessary. Usually this is determined at the time of discharge or at the first post-operative visit. - You should wear the GILBERT hose on both legs for 2 weeks. Dressing: Keep the surgical dressing in place for at least one week. After the first week it may be removed and replace with light gauze and tape or nothing. It may get wet after 3 days but avoid soaking the dressing. If it gets wet, just lightly pat dry. It is important to always keep some gauze between skin folds, especially when you are sitting. Spend some time with the wound exposed when you are lying flat as the incision does wrinkle onto itself. Medications: - You should take Tylenol and an anti-inflammatory Celebrex as your primary pain control medications. If the Celebrex is too expensive or not covered, please call the office for another alternative (Advil/Ibuprofen or Naproxen/Aleve). - You have been prescribed a stronger pain medication Oxycodone for breakthrough pain, take as needed as prescribed. - You have also been prescribed a stomach acid reduction agent Pantoprozole to help reduce stomach acid and reflux. - You restart your warfarin tonight as previously prescribed. This will also be beneficial for DVT prevention unless instructed otherwise. - If you have constipation you should take Colace or Miralax (both [id number]). It takes most people 3-4 days to have a bowel movement. Follow-up: 2 weeks If you have any acute concerns or questions, please do not hesitate to contact the office at [phone]. You may contact Dr. Cortes with any questions after hours through the hospital at [phone] or on his cell phone at [phone]. Stand Alone Forms: Anesthesia Discharge Inst. Referrals: Adan Cortes MD [ [facility] STAFF PHYSICIAN] - Equipment/Supplies: Walker Activity:: Activity as Tolerated Remove Dressings/Wound Care:: Do Not Remove Shower/Bathe:: 72 hours Diet:: As Tolerated Discharge Orders Discharge Orders: Discharge Order (Routine); Ordered 12/05/20 Ordered By: Marine Ospina
[2020-12-05] MEDS: ceFAZolin 3,000 MG in Normal Saline 100 ML 200 MG IVPB (07:55)
[2020-12-05] MEDS: methylPREDNISolone ACETATE 80 MG/ML VIAL (08:00)
[2020-12-05] MEDS: Bupivacaine 0.25% Pres-Free 30 ML VIAL (08:55)
[2020-12-05] MEDS: Ketorolac 30 MG/ML VIAL (08:55)
--- NOTE | 2020-12-05 09:00 | DI.RAD_ITS ---
EXAM: XR HIP RT IN OR CLINICAL HISTORY: osteoarthritis right hip. TECHNIQUE: 2D digital imaging was performed. COMPARISON: No exams were available for comparison FINDINGS: Fluoroscopy was provided during therapeutic hip injection. Submitted C-arm image reveals distal tip of the needle to be at the junction of the femoral head and neck. Total fluoroscopy time 35.8 seconds; c cumulative dose 10.74mGy IMPRESSION: DATA REPOSITORY: RADIATION DOSE DELIVERED:
--- NOTE | 2020-12-05 10:14 | ROE_ITS ---
Date of service: 12/05/20 Time of Service: 09:14 Operative Note Operative Note DATE OF PROCEDURE: 12/05/20 PRE-OP DIAGNOSIS: Right Hip DJD, Left Hip DJD POST-OP DIAGNOSIS: same PROCEDURE: Right Anterior Total Hip Arthroplasty, Left Hip Intraarticular Injection SURGEON: Adan Cortes SERVICE LIAISON REPRESENTATIVE: Marine Ospina ANESTHESIA TYPE: Spinal Refer to Anesthesia Record ESTIMATED BLOOD LOSS: 350 PATHOLOGY: none sent TOURNIQUET TIME: 0 COMPLICATIONS: None Patient was transported to: PACU Patient's condition: stable Implants: 1. Depuy Rosebud Acetabular Component, 56mm 2. Depuy Acetabular Liner, [id number] 3. Depuy Corail High Offset Collared Femoral Stem, Size 11 4. Depuy Altrx Ceramic Femoral Head, Size 36+5mm Indications: I have seen Simón in clinic for symptoms of hip arthritis, confirmed with radiographic findings. He has exhausted nonoperative methods and was having significant limitations in daily function and desired better function and less pain. I discussed the technical details of a hip replacement. I explained the risks of the procedure to include, but not limited to, bleeding, infection, pain, stiffness, fracture, damage to nerves and vessels, damage to muscles and tendons, loosening, instability, leg length inequality, need for repeat procedure, blood clot and cardiopulmonary demise. Despite these risks, Simón elected to proceed. Due to pain in the left hip and documented arthritis, I also offered an injection of the left hip under fluoroscopy. Findings: There was significant signs of arthritis throughout the hip. The anterior labrum was calcified and there were notable osteophytes. Procedure Description: Simón was greeted in the preoperative holding area where the correct side was identified and marked. The consent was reviewed with the patient and signed. The history and physical was updated. All questions were answered. He was taken back to the operating room. A spinal anesthestic was then admi nistered. The feet were wrapped with cast padding and Coban and then placed into the boot liners and then into the boots. Care was taken to protect the skin and make sure the heels were fully down and the boots were stable. The patient was then positioned onto the HANA table. Both legs were held in a neutral position. SCDs were applied. The patient was then slid down onto a peroneal post. Prophylactic antibiotics in the form of Cefazolin were administered. 1g of Tranxemic Acid was given intravenously within 30 minutes of incision. A timeout to confirm correct identity, side and site, procedure, allergies, anesthesia, and medical concerns was performed. The left hip was first prepped with Chloraprep. A spinal needle was used to enter the left hip joint from an anterior approach utilizing c-arm fluoroscopy. The needle tip hit bone and this was confirmed on x-ray. The right leg was then prepped with Chloraprep and draped in a standard fashion. A second prep with Chloraprep was performed prior to placement of a shower-curtain type drape with Iodine impregnated skin protection. An obliquely oriented incision was made starting lateral to the ASIS and running distal over the Tensor Fascia Mami (TFL) muscle belly toward the fibular head, approximately 10cm. The skin and soft tissue was dissected sharply, through Malick?s fascia, and to the fascia of the TFL. With the fascia and superior border of the IT band identified, the fascia was incised with a new knife just above any perforators from the IT band. The TFL muscle belly was bluntly dissected away from the fascia and moved laterally. The fat between TFL and rectus was identified to ensure the dissection was not within the TFL. Blunt dissection created space between abductors and the capsule and retractor was placed over the lateral femoral neck. The fibers of the rectus femoris tendon were identified and these were freed from the anterior capsule. A second cobra retractor was placed around the medial femoral neck. The TFL was further retracted laterally to show the deep fascia. Careful dissection through this layer identified three main crossing vessels of the lateral femoral circumflex. These were cauterized in multiple locations and then cut without any noticeable bleeding. The TFL was further released bluntly from the deep fascia to expose anterior hip capsule and fat The Carlos orthopaedic retractor was then placed beneath the TFL and against sartorius and medial soft tissues to protect and retract the soft tissues. A T-capsulotomy was then performed starting at the superior lateral acetabulum and moving distally to the intertrochanteric ridge. These capsular flaps were tagged with a No. 1 Ethibond and elevated from within. The capsular flaps were released to the shoulder of the lateral neck and to the lesser trochanter to give excellent visualization of the proximal femur. A neck osteotomy was performed using an oscillating saw based on preoperative templates. This cut started in the shoulder and of the lateral neck and exited medially. The saw was at all times directed medially to avoid injury to the greater trochanter. Gross traction was applied to the leg and the osteotomy opened. The femoral head was removed with a corkscrew, making sure to protect the TFL on its exit. Traction was released after head removal. This was measured on the back table to determine the starting reamer size. Portions of the rectus obscuring visualization were minimally elevated off the superior acetabulum. An anterior retractor was placed over the anterior wall between capsule and labrum and attached to the Gripper retraction system. The femur was rotated to 90 degrees and medial capsule was fully released until the lesser trochanter was palpable and visible; the femur was returned to 30 degrees. A posterior retractor was placed similarly between capsule and labrum. This provided excellent visualization. The contents of the cotyloid fossa were remov ed with electrocautery and the labrum was removed with a knife. There was a notable floor osteophyte. There was significant chondromalacia of the superior acetabulum. Acetabular reaming began with a 52mm reamer. This first reaming was directed anterior to posterior and medial to get down to the true floor. This was inspected and reamed until the true floor was reached. The anterior retractor was then released and entry and exit was provided by traction on the capsular flaps. I then reamed sequentially up to a 56mm reamer where good fit was obtained. The larger reamers were oriented based on anatomical reference of the anterior and lateral dillon to ensure proper abduction and anteversion. Positioning and size was confirmed with the fluoroscopy. A 56mm Depuy Rosebud acetabular component was selected. The acetabulum was reamed around the periphery with the selected acetabular size to prevent a rim fit. The deep tissues were irrigated. The acetabular component was then impacted in a position of about 40-45 degrees of abduction and 15-20 degrees of anteversion, using the patient?s anatomy as the ultimate landmark. Fluoroscopy was used to confirm this. There was excelle nt horse buyer of the acetabular component and the inserting handle was removed. The acetabular liner, Depuy [id number] polyethylene liner, was inserted and lined up with the tines of the acetabular component. There was no soft tissue interposition. The liner was then impacted into position and confirmed to be well-seated. A portion of the moni-articular cocktail was then injected around the acetabulum into the capsule and periosteum. This cocktail consisted of 50cc of 0.25% Bupivicaine and 20cc of Exparel and 30mg of Ketorolac. The leg was rotated to 120 degrees. Any remaining medial capsule was released until the lesser trochanter was easily palpable. A retractor was placed medially. The lateral capsule was further released into the shoulder to allow access to the greater trochanter. A Padilla retractor was placed over the greater trochanter which allowed the trochanter to flip in front of the capsule for excellent exposure. The leg was brought down into maximal extension and 20 degrees of adduction while ensuring there was no impingement on the acetabulum. Any remnant capsule within the trochanter was released. Piriformis and obturator externis were identified and protected. There was excellent access to the proximal femur. The lateral neck remnant was removed with a rongeur. A blunt canal probe was used to identify the canal and trajectory for later broaching. A box osteotome initiated the broach course. A small curved rasp and a curved curette were used to work laterally. Broaching then began with a size 8 Corail broach. This was inserted manually around the trochanter and into the canal before mallet blows. The broach was seated to a few millimeters below the cut level based on the neck cut and the preoperative template. Sequential broaching was continued with the Solve Mediase pneumatic broaching device until a tight fit was obtained with good rotational control of the femur. A trial high offset neck was inserted along with a +5 trial head. The leg was brought out of extension and adduction and then reduced with traction and internal rotation. The leg was stable anteriorly in a position of 30 degrees of extension and 90 degrees of external rotation. Fluoroscopy was used to ensure there was no fracture and the stem was seated well. Leg lengths were checked with an AP pelvis and pelvic reference points. [employer] navigation system was used to confirm appropriate positioning and leg length and offset. Using this system with the current trial, offset was accurately improved but there was about 6mm of leg length. So, I brought the femur back up and went down in broach size to sink the stem an additional 3mm. The planer was used to remove excess proximal femur from above the broach. The periosteum and surrounding tissue was injected with remaining portion of the moni-articular cocktail. The proximal femur was irrigated as well as the deep tissues. The Depuy Corail high offset collared stem, size 11, was then manually inserted into the proximal femur making sure to control rotation. It was then malleted into position with light blows, giving breaks to allow bone expansion and decrease risk of fracture. The selected Depuy Altrx Ceramic Head, size 36+5mm, was then placed onto the clean and dry trunnion and secured with impaction onto the tapered fit. The leg was brought back out of extension and adduction and reduced with traction and internal rotation. Stability was confirmed with no shuck at 90 degrees of external rotation and 30 degrees of extension. No impingement through range of motion arc. Final x-ray images were obtained with fluoroscopy to confirm adequate positioning and no intraoperative fracture. The deep tissues were thoroughly irrigated with Irrisept chlorhexadine solution. The capsule was then reapproximated with the previously placed Ethibond sutures. The TFL fascia was finally closed with a No. 2 Stratafix, barbed suture. Deep tissues were then reapproximated with 0 Vicryl and a running 2-0 Vicryl. The skin was closed with a running 4-0 Monocryl in a subcuticular fashion. This was reinforced with skin glue. A Mepilex silver dressing was applied. At the end of the case, all counts were correct. Simón was transferred to the hospital bed without difficulty and suffering no apparent complication. Simón has a good prognosis. Physical therapy will start today and without restrictions, weight-bearing as tolerated. Coumadin, as per his baselin, will be used for DVT prophylaxis.
[2020-12-05] MEDS: oxyCODONE 5 MG TAB PO (11:17)
--- NOTE | 2020-12-05 12:36 | PT.INIE ---
Date of service: 12/05/20 Time of Service: 12:36 PT Notes Visit Reasons: Right DEREK, Left Hip Injection Physical Therapy Day Surgery Initial Evaluation Date: 12/05/2020 Referring Doctor: EMMANUEL Maravilla PT Orders: PT CONSULT: S/P Ortho surgery Precautions: WBAT on B LE with assistive device. Patient Profile/Admitting Diagnosis: Simón is a 60-year-old male with degenerative joint disease of bilateral hips and is status post right total hip arthroplasty on postoperative day 1 with steroid injection of left hip. PMHX: Medical History DM (diabetes mellitus) HTN (hypertension) Obesity Tubular adenoma of colon (07/15/17) Surgical History Colonoscopy - MAC (07/15/17) Social History/Home Situation: Lives with stepdad in a private home with 3 steps to enter with both rails that are wide apart. Independent with all aspects of ADLs. Still drives. 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 Equipment Owned/DME: SPC, [facility] Subjective: Agreeable to PT consult. Denies headache, chest pain, and lightheadedness throughout session. Reports of a mild ache in the right hip. Objective: General Observation: Mepilex Ag over surgical incision. Bilateral TEDS on. Nurse Yudy present during mobility assessment for safety. Mental Status: Alert and oriented x4 Pain: 0/10 pain in the right hip ROM: Right Lower Extremity: Hip flexion WFL. Hip abduction WFL. Knee flexion WFL. Ankle dorsiflexion WFL. Ankle plantarflexion WFL. Left Lower Extremity: Hip flexion WFL. Hip abduction WFL. Knee flexion WFL. Ankle dorsiflexion WFL. Ankle plantarflexion WFL. Strength: Right Lower Extremity: Hip flexors 4/5. Hip abductors 4/5. Knee flexors 4/5. Knee extensors 4/5. Ankle dorsiflexors 5/5. Ankle plantarflexors 5/5. Left Lower Extremity: Hip flexors 5/5. Hip abductors 5/5. Knee flexors 5/5. Knee extensors 4/5. Ankle dorsiflexors 5/5. Ankle plantarflexors 5/5. Sensation: Intact as to pain and light pressure in bilateral lower extremities Bed Mobility/Transfers: Supine to sit independent Sit to stand standby assist Stand to sit standby assist Bed to chair standby assist Gait: Guided patient through level surface ambulation 150 feet using a front wheeled walker with step through gait pattern with standby assist of this PT and nurse Yudy. Mild pelvic dip to the right observed. Balance: Static Sitting: Normal Dynamic Sitting: Normal Static Standing: Good Dynamic Standing: Fair Special Tests: Mobility Limitations Standardized Measure [facility] AM-PAC 6 clicks Basic Mobility Inpatient Short Form: Raw Score: 23 CMS Score: 11% deficit Informed Consent/Education: Patient instructed in purpose of PT consult. Packet containing DEREK exercise protocol has been given to patient. Education and training on initial set of exercises that can be done at home have been completed with patient. Assessment: Simón requires the use of a front wheeled walker for all mobility ADL performance in order to maximize independence and reduce fall risk at home. He demonstrates good understanding of DEREK exercise protocol and is receptive to doing them as tolerated. Patient presents with clinical signs and symptoms consistent with current/admitting diagnoses that have resulted to mobility limitations, and gait instability as demonstrated by the following impairment level findings: 1. Impaired standing balance Impairments are contributing to the following functional limitations: 1. Inability to safely ambulate without assistive device 2. Increase completion time for mobility ADL performance 3. Increased fall risk Patient is assessed as a 72799 moderate complexity based on the following: History: 60-year-old male with impairment level findings, functional limitations, and past medical history as indicated above Examination: Demonstrable impairment in strength, balance, and mobility level with underlying impairments and functional limitations as documented above Presentation: Evolving Decision Makin moderate complexity Goals: N/A. PT evaluation and 1-2 treatment sessions only for functional mobility training using recommended AD and for HEP instruction. Plan of Care/Treatment Plan: N/A. PT evaluation and 1-2 treatment session only for functional mobility training using recommended AD and for HEP instruction. DISCHARGE RECOMMENDATIONS: Home when medically cleared by orthopedic surgeon. Patient will benefit from the use of a front wheel walker for all mobility ADL performance at home. Outpatient PT services in order to facilitate return to independent community ambulation and vocational activities. TREATMENT CODE/TIME: 11148 x 20 minutes, 49211 x 25 minutes beginning at 12:36 PM. Thank you for the opportunity to participate in the care of this patient.
== END 2020-12-05 14:18 | disposition home or self-care (01) ==
PROVIDERS: PCP Family Medicine; Visit Provider Student in an Organized Health Care Education/Training Program
PROC: (CPT 27130; principal; 2020-12-05 07:30)
PROC: (CPT 27130; 2020-12-05 07:30)
DX: M16.11 Unilateral primary osteoarthritis, right hip (principal); M16.12 Unilateral primary osteoarthritis, left hip; Z96.651 Presence of right artificial knee joint; E11.9 Type 2 diabetes mellitus without complications; K76.0 Fatty (change of) liver, not elsewhere classified; I48.91 Unspecified atrial fibrillation; Z79.01 Long term (current) use of anticoagulants; D69.6 Thrombocytopenia, unspecified; I10 Essential (primary) hypertension
CPT/HCPCS: 27130; 20610; 20985; C1776; 97162; 97530; 73501; 85610; J0690; J1040; J1100; J1885; J2001; J2405; J2704

== ENCOUNTER 2020-12-20 11:32 | Outpatient (CLI) | payer MEDICAID, SELFPAY ==
--- NOTE | 2020-12-20 10:30 | DI.RAD_ITS ---
Exam(s) XR HIP RT COMPLETE AP PELVIS EXAM: XR HIP RT COMPLETE AP PELVIS CLINICAL HISTORY: 1ST POST OP R DEREK. TECHNIQUE: 2D digital imaging was performed. COMPARISON: 11/27/2020 x-rays FINDINGS: There has been interval placement of right hip prosthesis. Components are in satisfactory position a lignment. No fractures. No obvious loosening evident. IMPRESSION: DATA REPOSITORY: RADIATION DOSE DELIVERED:
== END 2020-12-20 11:33 | disposition home or self-care (01) ==
LOC: DIORS 11:33
PROVIDERS: PCP Family Medicine; Referring Provider Family Medicine; Visit Provider Student in an Organized Health Care Education/Training Program
DX: Z96.641 Presence of right artificial hip joint (principal); Z47.1 Aftercare following joint replacement surgery
CPT/HCPCS: 73502

== ENCOUNTER 2021-12-05 10:14 | Outpatient (CLI) | payer MEDICAID, SELFPAY ==
--- NOTE | 2021-12-05 09:20 | DI.RAD_ITS ---
Exam(s) XR HIP RT AP LAT ONLY EXAM: XR HIP RT AP LAT ONLY CLINICAL HISTORY: R DEREK TECHNIQUE: COMPARISON: CR XR HIP RT COMPLETE AP PELVIS from 12/20/2020 FINDINGS: Two views were obtained and show total knee joint replacement position on the right. The components appear well seated. No other significant bony abnormality seen. IMPRESSION: RADIATION DOSE DELIVERED: Total DLP
== END 2021-12-05 10:15 | disposition home or self-care (01) ==
LOC: DIORS 10:15
PROVIDERS: PCP Family Medicine; Referring Provider Family Medicine; Visit Provider Physician Assistant
DX: Z96.641 Presence of right artificial hip joint (principal); Z47.1 Aftercare following joint replacement surgery
CPT/HCPCS: 73502

== ENCOUNTER 2022-03-07 16:52 | Outpatient (REF) | payer MEDICAID, SELFPAY ==
[2022-03-07 16:50] LABS: HGB 13.8 g/dL (13.5-17.5); MCH 29.2 pg (27.0-33.0); MCHC 33.7 % (32.0-36.0); MCV 87 fL (80-95); MPV 10.6 fL (8.0-11.0); Platelet Count 84 10^3/uL (130-400); RBC 4.72 10^6/uL (4.36-5.78); RDW 13.7 % (11.8-14.1); RDW-SD 44.1 fL; WBC 3.41 10^3/uL (4.4-10.8)
[2022-03-07 18:05] LABS: ALT 38 U/L (16-63); AST 34 U/L (15-37); Albumin 3.9 g/dL (3.4-5.0); Alkaline Phosphatase 61 U/L (46-116); Anion Gap 9.3 mmol/L (3-11); BUN 22 mg/dL (7-18); Bilirubin, Total 0.9 mg/dL (0.2-1.0); CO2 26.7 mmol/L (21.0-32.0); Calcium 9.2 mg/dL (8.5-10.1); Chloride 103 mmol/L (98-107); Glucose 124 mg/dL (74-106); Potassium 4.4 mmol/L (3.5-5.1); Sodium 139 mmol/L (136-145)
== END 2022-03-07 16:53 | disposition home or self-care (01) ==
LOC: NCHCN 16:52
PROVIDERS: PCP Family Medicine; Visit Provider Family Medicine
DX: E11.9 Type 2 diabetes mellitus without complications (principal); I10 Essential (primary) hypertension; K76.0 Fatty (change of) liver, not elsewhere classified; E88.81 Metabolic syndrome and other insulin resistance
CPT/HCPCS: 80053; 85027; 83036

== ENCOUNTER → 2022-07-14 01:12 | Outpatient (CLI) | payer MEDICAID, SELFPAY ==
--- NOTE | 2022-07-14 13:38 | DI.RAD_ITS ---
Exam(s) XR KNEE LT 3V AP,LAT,NAIF EXAM: XR KNEE LT 3V AP,LAT,NAIF CLINICAL HISTORY: LT KNEE PAIN, M25.562. TECHNIQUE: 2D digital imaging was performed. Three views. COMPARISON: No exams were available for comparison FINDINGS: BONES: No acute fracture is present. No bony destructive lesion is seen. Periarticular spurring thro ughout. Prominence at tibial tubercle. JOINTS: Severe medial femoral tibial joint space narrowing. Patellofemoral joint space narrowing als o present.. No joint effusion is seen. SOFT TISSUE: Vascular calcifications. IMPRESSION: Severe degenerative changes medial femoral tibial joint. DATA REPOSITORY: RADIATION DOSE DELIVERED:
== END ==
PROVIDERS: PCP Family Medicine; Visit Provider Family Medicine
DX: M25.562 Pain in left knee (principal); M17.12 Unilateral primary osteoarthritis, left knee
CPT/HCPCS: 73562

== ENCOUNTER 2023-01-30 13:53 | Outpatient (REF) | payer MEDICAID, SELFPAY ==
--- NOTE | 2023-01-30 11:40 | SKI_PTH ---
PATIENT: Simón Jamison JR [id number] AGE/SX: 62/M ROOM: RE01/30/[address]: Marine Gooden V : 1960 BED: DIS: 01/30/2023 SPEC #: [id number] RECD: 01/30/23 16:18 STATUS: DELORIS BAHENA #: [id number] ROCIO: 01/30/23 11:[address]: Marine Gooden V DEPT: Surgical Specimen RECD BY: Marycarmen Ross Tissues: 1 - SKIN BIOPSY(SHAVE/PUNCH) 2 - SKIN BIOPSY(SHAVE/PUNCH) Procedures: SKIN LEVEL 4 SPECIAL STAIN 1 Comments: [id number]
== END 2023-01-30 13:54 | disposition home or self-care (01) ==
LOC: NCHCN 13:53
PROVIDERS: PCP Family Medicine; Visit Provider Family Medicine
DX: I87.2 Venous insufficiency (chronic) (peripheral); L30.8 Other specified dermatitis
CPT/HCPCS: 88305; 88312

== ENCOUNTER 2023-08-13 16:07 | Outpatient (REF) | payer MEDICARE, SELFPAY ==
[2023-08-13 19:03] LABS: HCT 40.5 % (40.0-50.0); HGB 12.6 g/dL (13.5-17.5); MCH 28.6 pg (27.0-33.0); MCHC 31.1 % (32.0-36.0); MCV 92 fL (80-95); MPV 10.8 fL (8.0-11.0); RBC 4.41 10^6/uL (4.36-5.78); RDW 14.9 % (11.8-14.1); WBC 4.31 10^3/uL (4.4-10.8)
[2023-08-13 19:16] LABS: Platelet Count 88 10^3/uL (130-400)
[2023-08-13 19:25] LABS: Hemoglobin A1C 6.2 % (<5.7)
[2023-08-13 19:34] LABS: ALT 33 U/L (16-63); AST 38 U/L (15-37); Albumin 3.9 g/dL (3.4-5.0); Alkaline Phosphatase 77 U/L (46-116); Anion Gap 2.9 mmol/L (3-11); BUN 22 mg/dL (7-18); Bilirubin, Total 1.4 mg/dL (0.2-1.0); CO2 37.1 mmol/L (21.0-32.0); CREATININE 1.1 mg/dL (0.70-1.30); Calcium 9.4 mg/dL (8.5-10.1); Calculated LDL 99 mg/dL (<100); Chloride 102 mmol/L (98-107); Cholesterol 173 mg/dL (<200); Glucose 88 mg/dL (74-106); HDL Cholesterol 59 mg/dL (40-60); Potassium 4.6 mmol/L (3.5-5.1); Sodium 142 mmol/L (136-145); Total Protein 7.7 g/dL (6.4-8.2); Triglyceride 75 mg/dL (<150)
[2023-08-13 19:56] LABS: NT-proBNP 7739 pg/mL (<300)
[2023-08-14 09:53] LABS: TSH (W/Ref FT4) 1.16 uIU/mL (0.36-3.74)
== END 2023-08-13 16:08 | disposition home or self-care (01) ==
LOC: NCHCN 16:07
PROVIDERS: PCP Family Medicine; Visit Provider Family Medicine
DX: E11.9 Type 2 diabetes mellitus without complications (principal); R60.9 Edema, unspecified
CPT/HCPCS: 80053; 80061; 85027; 83036; 83880; 84443

== ENCOUNTER 2023-09-17 15:38 | Outpatient (REF) | payer MEDICARE, SELFPAY ==
[2023-09-17 20:03] LABS: ALT 32 U/L (16-63); AST 37 U/L (15-37); Albumin 3.4 g/dL (3.4-5.0); Alkaline Phosphatase 90 U/L (46-116); Anion Gap 5.1 mmol/L (3-11); BUN 30 mg/dL (7-18); Bilirubin, Total 1.8 mg/dL (0.2-1.0); CO2 33.9 mmol/L (21.0-32.0); CREATININE 1.1 mg/dL (0.70-1.30); Calcium 9.4 mg/dL (8.5-10.1); Chloride 102 mmol/L (98-107); Glucose 78 mg/dL (74-106); NT-proBNP 7514 pg/mL (<300); Potassium 4.5 mmol/L (3.5-5.1); Sodium 141 mmol/L (136-145); Total Protein 8.2 g/dL (6.4-8.2)
== END 2023-09-17 15:39 | disposition home or self-care (01) ==
LOC: NCHCN 15:38
PROVIDERS: PCP Family Medicine; Visit Provider Family Medicine
DX: R60.0 Localized edema (principal)
CPT/HCPCS: 80053; 83880

== ENCOUNTER 2023-09-29 16:05 | Outpatient (REF) | payer MEDICARE, SELFPAY ==
[2023-09-29 20:56] LABS: ESR 44 mm/hr (0-20)
[2023-09-29 21:08] LABS: Anion Gap 5.8 mmol/L (3-11); BUN 30 mg/dL (7-18); C-Reactive Protein 1.72 mg/dL (<or=0.5); CO2 36.2 mmol/L (21.0-32.0); CREATININE 1.1 mg/dL (0.70-1.30); Calcium 9.5 mg/dL (8.5-10.1); Chloride 102 mmol/L (98-107); Glucose 80 mg/dL (74-106); Potassium 4.6 mmol/L (3.5-5.1); Sodium 144 mmol/L (136-145)
[2023-10-02 15:24] LABS: Smooth Muscle Ab Screen Negative (Negative)
[2023-10-02 15:35] LABS: ANA Interpretation Negative (Negative)
[2023-10-06 10:11] LABS: PSA, Screening 0.4 ng/mL (<=4.5)
== END 2023-09-29 16:06 | disposition home or self-care (01) ==
LOC: NCHCN 16:05
PROVIDERS: PCP Family Medicine; Visit Provider Family Medicine
DX: Z12.5 Encounter for screening for malignant neoplasm of prostate (principal)
CPT/HCPCS: 80048; 84153; 85652; 86038; 86140; 86255

== ENCOUNTER 2023-12-03 05:40 | Outpatient (CLI) | payer MEDICARE, SELFPAY ==
[2023-12-03 12:40] LABS: ALT 37 U/L (16-63); AST 29 U/L (15-37); Albumin 3.7 g/dL (3.4-5.0); Alkaline Phosphatase 74 U/L (46-116); Bilirubin, Direct 0.3 mg/dL (0.0-0.2); Bilirubin, Total 0.9 mg/dL (0.2-1.0); Total Protein 8.3 g/dL (6.4-8.2)
== END 2023-12-03 05:41 | disposition home or self-care (01) ==
LOC: LOS 05:40
PROVIDERS: PCP Family Medicine; Visit Provider Dermatology
DX: Z79.899 Other long term (current) drug therapy (principal)
CPT/HCPCS: 36415; 80076

== ENCOUNTER 2024-07-29 22:22 | Outpatient (REF) | payer MEDICARE, SELFPAY ==
[2024-07-29 18:48] LABS: HCT 40.2 % (40.0-50.0); HGB 13.3 g/dL (13.5-17.5); MCH 30.1 pg (27.0-33.0); MCHC 33.1 % (32.0-36.0); MCV 91 fL (80-95); MPV 10.7 fL (8.0-11.0); RBC 4.42 10^6/uL (4.36-5.78); RDW 13.8 % (11.8-14.1); RDW-SD 46.5 fL; WBC 4.71 10^3/uL (4.4-10.8)
[2024-07-29 19:09] LABS: ALT 20 U/L (16-63); AST 19 U/L (15-37); Albumin 3.9 g/dL (3.4-5.0); Alkaline Phosphatase 67 U/L (46-116); Anion Gap 10.9 mmol/L (3-11); BUN 28 mg/dL (7-18); Bilirubin, Total 1.35 mg/dL (0.2-1.0); CO2 23.1 mmol/L (21.0-32.0); CREATININE 1.4 mg/dL (0.70-1.30); Calcium 9.7 mg/dL (8.5-10.1); Chloride 106 mmol/L (98-107); Estimated GFR 55.43 (mL/min/1.73m2); Glucose 111 mg/dL (74-106); Potassium 5.4 mmol/L (3.5-5.1); Sodium 140 mmol/L (136-145); Total Protein 7.7 g/dL (6.4-8.2)
[2024-07-29 19:20] LABS: Platelet Count 90 10^3/uL (130-400)
== END 2024-07-29 22:23 | disposition home or self-care (01) ==
LOC: NCHCN 22:22
PROVIDERS: PCP Family Medicine; Visit Provider Family Medicine
DX: I10 Essential (primary) hypertension (principal)
CPT/HCPCS: 80053; 85027

== ENCOUNTER 2024-08-08 15:17 | Outpatient (CLI) | payer MEDICARE, SELFPAY ==
--- NOTE | 2024-08-08 13:38 | DI.RAD_ITS ---
Exam(s) XR HIP LT COMPLETE AP PELVIS EXAM: XR HIP LT COMPLETE AP PELVIS CLINICAL HISTORY: left hip DJD. TECHNIQUE: 2D digital imaging was performed. COMPARISON: CR XR HIP PELVIS ADULT BL from 10/01/2020 CR XR HIP RT AP LAT ONLY from 12/05/2021 FINDINGS: Two views There is stable appearance of the right hip prosthesis. There is significant further progression of osteoarthritic degenerative changes in the left hip. The re is [id number] narrowing of the superior aspect of the joint space and multiple degenerative suba rticular cysts in the femoral head articular surface and acetabulum. IMPRESSION: Severe advanced osteoarthritic degenerative changes in the left hip which have further significantly progressed when compared to 10/01/2020. The right hip prosthesis remain stable in appearance. DATA REPOSITORY: RADIATION DOSE DELIVERED:
--- NOTE | 2024-08-08 13:38 | DI.RAD_ITS ---
Exam(s) XR KNEE LT 3V AP,LAT,NAIF EXAM: XR KNEE LT 3V AP,LAT,NAIF CLINICAL HISTORY: left knee DJD. TECHNIQUE: 2D digital imaging was performed. COMPARISON: CR XR KNEE LT 3V AP,LAT,NAIF from 07/14/2022 FINDINGS: 3 views No evidence of fracture nor obvious joint effusion. There is advanced degenerative narrowing of the medial compartment of the knee. There also 2 similar appearing adjacent calcifications immediately adjacent to the outer most aspect of the medial femora l condyle, these related to the medial collateral ligament. These are not acute fracture fragments a s they are corticated. They measure 9 by 5 mm. Minimal narrowing of the lateral compartment but there is chondrocalcinosis evident in the lateral co mpartment. Mild-moderate degenerative change in the patellofemoral compartment IMPRESSION: Degenerative changes as above, most prominent in the medial compartment. Also 2 corticated calcific densities measuring 9 x 5 in the region of the medial collateral ligament above the joint space. DATA REPOSITORY: RADIATION DOSE DELIVERED:
== END 2024-08-08 15:18 | disposition home or self-care (01) ==
LOC: DIORS 15:17
PROVIDERS: PCP Family Medicine; Referring Provider Family Medicine; Visit Provider Physician Assistant
DX: M16.12 Unilateral primary osteoarthritis, left hip (principal); M17.12 Unilateral primary osteoarthritis, left knee; M87.052 Idiopathic aseptic necrosis of left femur
CPT/HCPCS: 73562; 99214; 73502

== ENCOUNTER 2024-08-09 14:53 | Outpatient (REF) | payer MEDICARE, SELFPAY ==
[2024-08-09 15:59] LABS: HGB 13.4 g/dL (13.5-17.5); MCH 29.8 pg (27.0-33.0); MCHC 33.5 % (32.0-36.0); MCV 89 fL (80-95); MPV 10.6 fL (8.0-11.0); RBC 4.49 10^6/uL (4.36-5.78); RDW 14.1 % (11.8-14.1); RDW-SD 46.3 fL; WBC 4.16 10^3/uL (4.4-10.8)
[2024-08-09 16:10] LABS: Platelet Count 78 10^3/uL (130-400)
[2024-08-09 16:11] LABS: Anion Gap 9.6 mmol/L (3-11); BUN 26 mg/dL (7-18); CO2 23.4 mmol/L (21.0-32.0); CREATININE 1.3 mg/dL (0.70-1.30); Calcium 9.4 mg/dL (8.5-10.1); Chloride 105 mmol/L (98-107); Estimated GFR 60.59 (mL/min/1.73m2); Glucose 98 mg/dL (74-106); Potassium 5.9 mmol/L (3.5-5.1); Sodium 138 mmol/L (136-145)
== END 2024-08-09 14:54 | disposition home or self-care (01) ==
LOC: NCHCN 14:53
PROVIDERS: PCP Family Medicine; Visit Provider Family Medicine
DX: I10 Essential (primary) hypertension (principal)
CPT/HCPCS: 80048; 85027

== ENCOUNTER 2024-08-25 11:40 | Outpatient (CLI) | payer MEDICARE, SELFPAY ==
[2024-08-25 12:57] LABS: Platelet Count 81 10^3/uL (130-400)
[2024-08-25 16:38] LABS: Potassium 5.4 mmol/L (3.5-5.1)
== END 2024-08-25 11:41 | disposition home or self-care (01) ==
LOC: LOS 11:41
PROVIDERS: PCP Family Medicine; Visit Provider Family Medicine
DX: E87.5 Hyperkalemia (principal)
CPT/HCPCS: 36415; 80048; 85027; 84132; 85049

== ENCOUNTER → 2024-09-08 09:44 | Outpatient (BNVA) | payer MEDICARE, SELFPAY | PROVIDERS: PCP Family Medicine; Referring Provider Family Medicine | DX: M16.12 Unilateral primary osteoarthritis, left hip (principal); M87.052 Idiopathic aseptic necrosis of left femur | CPT/HCPCS: 99214 ==

== ENCOUNTER 2024-09-20 08:22 | Day surgery (SDC) | payer MEDICARE, SELFPAY ==
[2024-09-20] VITALS (19 sets, daily range): BP systolic 134–160; BP diastolic 67–102; PULSE 54–74; RESP 11–22; TEMP 36.2–36.7; O2SAT 93–99; BMI 38.2
--- NOTE | 2024-09-20 06:27 | ANES.PREOP_ITS ---
General Info Date of Service Date Performed: 09/20/24 Height: 5 ft 10 in Weight: 121.109 kg Body Mass Index (BMI): 38.2 Surgical Procedure: Operation Date: 09/20/24 11:20 Proposed Procedure Side Surgeon p Hip Total Hip Anterior, ACTIS Left Adan Cortes MD Meds Allergies and Home Medications Allergies Allergy/AdvReac Type Severity Reaction Status Date / Time No Known Allergies Allergy Verified 09/20/24 08:59 Home Medication ?Medication ?Instructions ?Recorded Levemir U-100 Insulin 100 unit/mL 6 unit subcut HS 06/30/17 subcutaneous solution (insulin detemir U-100) atenolol 100 mg tablet 150 mg PO DAILY 06/30/17 metformin 1,000 mg tablet 1,000 mg PO BID 06/30/17 acetaminophen 500 mg tablet 1,000 mg PO BID PRN 12/04/20 (Acetaminophen Extra Strength) warfarin 5 mg tablet 5 mg PO DIRECTED 12/04/20 acetaminophen 500 mg tablet 1,000 mg (2 x 500 mg) PO Q8H PRN 12/05/20 pain #90 tabs celecoxib 200 mg capsule (Celebrex) 200 mg PO BID #60 caps 12/05/20 pantoprazole 40 mg tablet,delayed 40 mg PO DAILY #30 tabs 12/05/20 release (Protonix) allopurinol 100 mg tablet 150 mg PO DAILY 07/23/22 amlodipine 10 mg tablet 10 mg PO DAILY 07/23/22 indomethacin 50 mg capsule 50 mg PO TID 07/23/22 losartan 50 mg tablet 50 mg PO DAILY 07/12/24 spironolactone 100 mg tablet 100 mg PO DAILY 07/12/24 Current Visit Medications: Current Medications Generic Name Dose Route Start Last Admin Trade Name Freq PRN Reason Stop Dose Admin Acetaminophen 1,000 mg 09/20/24 06:00 Acetaminophen 500 Mg Tab PO 09/20/24 23:59 PREOP SUDHEER Celecoxib 400 mg 09/20/24 06:00 Celecoxib 200 Mg Cap PO 09/20/24 23:59 PREOP SUDHEER Gabapentin 300 mg 09/20/24 06:00 Gabapentin 300 Mg Cap PO 09/20/24 23:59 PREOP SUDHEER Cefazolin Sodium/Dextrose 2 gm in 50 mls @ 100 mls/hr 09/20/24 06:00 Ancef Duplex IVPB 09/20/24 23:59 PREOP SUDHEER Tranexamic Acid/Sodium Chloride 1,000 mg in 100 mls @ 600 mls/hr 09/20/24 06:00 IVPB 09/20/24 23:59 PREOP SUDHEER IV Miscellaneous Supplies 1 each 09/20/24 06:00 Iv Access IV 09/20/24 23:59 DIRECTED SUDHEER Sodium Chloride 0 ml 09/20/24 06:00 Normal Saline Flush 10 Ml Syr IV 09/20/24 23:59 PRN PRN Sodium Chloride 0 ml 09/20/24 06:00 Normal Saline 10 Ml Vial IJ 09/20/24 23:59 DIRECTED PRN Sterile Water 0 ml 09/20/24 06:00 Water,Injection,Sterile 10 Ml Vial IJ 09/20/24 23:59 DIRECTED PRN PFSH Active Problems Active Problems: Problem Status Onset Code Avascular necrosis of left femur Acute M87.052 Osteoarthritis of left knee Acute M17.12 Aortic aneurysm Chronic I71.9 Osteoarthritis of left hip Acute M16.12 Tubular adenoma of colon Acute 07/15/17 D12.6 Medical History Medical History (Updated 09/20/24 @ 09:17 by Sara Coyne RN) Bundle branch block Gout Metabolic syndrome Peripheral neuropathy History of fracture of right ankle with hardware History of kidney stones Thrombocytopenia A-fib Obesity HTN (hypertension) DM (diabetes mellitus) Surgical History Surgical History (Updated 09/20/24 @ 09:17 by Sara Coyne, RN) History of ankle surgery right ankle History of total right hip replacement (12/05/20) History of lithotripsy Colonoscopy - MAC (07/15/17) Tobacco Smoking/Tobacco Use Status: Never Alcohol Alcohol Intake: never Substance Use Substance use: Never Substance use type: does not use Vital Signs and Lab Results Vital Signs Most Recent Vital Signs in EMR: Temp Pulse Resp BP Pulse Ox 36.7 C 67 16 160/102 H 95 09/20/24 08:48 09/20/24 08:48 09/20/24 08:48 09/20/24 08:48 09/20/24 08:48 Lab Results 09/20/24 08:45 Blood Type / Crossmatch: 2 No Data to Display Complete Blood Count: 2 Platelet Count 81 10^3/uL (130-400) L 08/25/24 10:53 Complete Metabolic Panel: 2 Potassium 4.4 mmol/L (3.5-5.1) 09/20/24 08:45 Liver Function Panel: 2 No Data to Display Coagulation Panel: 2 INR International Normalized Ratio 1.2 (0.9-1.1) H 09/20/24 08 :45 Prothrombin Time 12.0 sec (9.1-11.1) H 09/20/24 08:45 Cardiac Panel: 2 No Data to Display Arterial Blood Gas: 2 No Data to Display Venous Blood Gas: 2 No Data to Display Pancreas Panel: 2 No Data to Display Thyroid Panel: 2 No Data to Display Infectious Disease: 2 No Data to Display Blood Cultures: 2 No Data to Display Toxicology Panel: 2 No Data to Display Anesthesia Assessment and Plan Anesthesia History Personal History: No History of Anesthesia Complications Family History: No Family History of Anesthesia Complications Exercise Tolerance Exercise Tolerance: Metabolic Equivalents>4 Cardiac & Pulmonary Exam Cardiac Exam: Normal S1/S2 Heart Sounds Pulmonary Exam: Clear Bilateral Breath Sounds Implantable Cardiac Device Does patient have a Pacemaker or an ICD?: No Airway Exam Known Difficult Airway: No Mallampati Class: 3 Mouth Opening: Normal (> 3cm) Thyromental Distance: Greater than 3 cm Neck Range of Motion: Limited ROM Neck Circumference: Thick Teeth Condition: Normal Dentition ASA Classification ASA Score: ASA 3 Emergency Case?: No NPO Status NPO Status: NPO Clears >2 hours, Solids >8 hours Anesthesia Plan Resuscitation Status: Full Code Anesthesia Technique: General Anesthesia Airway Planned: Endotracheal Tube Monitors Used: Standard Monitors Preoperative Comments:: 64 yo male for DEREK. Sig PMHx: HTN (amlodipine, losartan, spironolactone), CHF, afib (warfarin (INR 1.2 today), atenolol), DM (metformin, Levemir (last dose last night)), thrombocytopenia (last plt 81), polyneuropathy, never smoker. K 5.4, down from before, will recheck today. ECHO: LVEF 55-60%, PASP 36 mmHg. trace mr, trace pr, Ao root 3.9 cm. Previous Anes: - DEREK, prop/sevo, LMA 5, no issues. - colo, prop, natural airway, no issues. Discussed risks, benefits and GA vs spinal in relation to his chronic anticoagulation and thrombocytopenia, would like to proceed as last time with GA.
[2024-09-20 09:00] LABS: Potassium 4.4 mmol/L (3.5-5.1)
[2024-09-20 09:01] LABS: INR 1.2 (0.9-1.1)
[2024-09-20] MEDS: Acetaminophen 500 MG TAB 1000 MG PO (09:05)
[2024-09-20] MEDS: Celecoxib 200 MG CAP 400 MG PO (09:05)
[2024-09-20] MEDS: Lactated Ringers 1,000 ML 80 ML IV (10:10)
--- NOTE | 2024-09-20 10:59 | W.PM.DSUDISC ---
Date of service: 09/20/24 Discharge Plan Disposition Patient Disposition: Home Condition: Good Discharge Details Reason For Visit: Left hip DJD Attending Provider: Adan Cortes Primary Care Provider: Marine Gooden V Home Meds and New Rx's Prescriptions: New acetaminophen 500 mg tablet 1,000 mg PO Q8H PRN Qty: 90 0RF Rx Instructions: Take two tablets up to every 8 hours as needed for pain celecoxib [Celebrex] 200 mg capsule 200 mg PO BID PRNQty: 60 0RF Rx Instructions: Take one tablet twice daily for pain and inflammation docusate sodium [Colace] 100 mg capsule 100 mg PO BID Qty: 30 0RF dexamethasone 4 mg tablet 4 mg PO DAILY Qty: 2 0RF Rx Instructions: Take one tablet once daily for two days oxycodone 5 mg tablet 5 mg PO Q6H PRNQty: 12 0RF Rx Instructions: Take one tablet up to every 6 hours as needed for severe postoperative pain Continued losartan 50 mg tablet 50 mg PO DAILY spironolactone 100 mg tablet 100 mg PO DAILY atenolol 100 MG tablet 150 mg PO DAILY metformin 1,000 MG tablet 1,000 mg PO BID Levemir U-100 Insulin 100 UNIT/1 ML solution 6 unit Sub-Q HS amlodipine 10 mg tablet 10 mg PO DAILY allopurinol 100 mg tablet 150 mg PO DAILY warfarin 5 mg tablet 5 mg PO DIRECTED Patient Comments: TAKE 1 AND 1/2 TO 2 TABLETS BY MOUTH DAILY DIRECTED. ADJUSTED BASED ON INR. Rx Instructions: 5 mg 4 days weeks, 10mg mwf pantoprazole [Protonix] 40 mg tablet,delayed release (DR/EC) 40 mg PO DAILY Qty: 30 0RF Discontinued acetaminophen 500 mg tablet 1,000 mg PO Q8H PRN (Reason: pain) Qty: 90 0RF indomethacin 50 mg capsule 50 mg PO TID Rx Instructions: administer with food or milk acetaminophen [Acetaminophen Extra Strength] 500 mg Tablet 1,000 mg PO BID PRN celecoxib [Celebrex] 200 mg capsule 200 mg PO BID Qty: 60 0RF Discharge Instructions Additional Instructions: Total Hip Discharge Instructions Activity: The most important activity is to walk. You should try to take short walks a few times a day. You have no restrictions on movement or positioning, but do not try to force what you do. You will find some stiffness and weakness with hip flexion (lifting your knee). Do not try to strengthen this too early, continue to practice walking and stairs and this will come. - Outpatient physical therapy can be helpful to help return you to a normal gait and improve your flexibility and strength. This can start around 2 weeks. For some patients, it?s not necessary. Usually this is determined at the time of discharge or at the first post-operative visit. - You should wear the GILBERT hose on both legs for 2 weeks. Dressing: Keep the surgical dressing in place for at least one week. After the first week it may be removed and replace with light gauze and tape or nothing. It may get wet after 3 days but avoid soaking the dressing. If it gets wet, just lightly pat dry. It is important to always keep some gauze between skin folds, especially when you are sitting. Spend some time with the wound exposed when you are lying flat as the incision does wrinkle onto itself. Medications: - You should take Tylenol and an anti-inflammatory Celebrex as your primary pain control medications. If the Celebrex is too expensive or not covered, please call the office for another alternative (Advil/Ibuprofen or Naproxen/Aleve). - You have been prescribed a stronger pain medication Oxycodone for breakthrough pain, take as needed as prescribed. - You take a stomach acid reduction agent Pantoprozole at baseline - continue with this medication to help reduce stomach acid and reflux. - You have also been prescribed Decadron to help with post-operative nausea and pain. You will take this for two days starting tomorrow. - You will resume your normal anticoagulation of warfarin tomorrow (09/21/24). - If you have constipation you should take Colace (which has been prescribed) or Miralax (which is available [id number]). It takes most people 3-4 days to have a bowel movement. Follow-up: 2 weeks If you have any acute concerns or questions, please do not hesitate to contact the office at [phone]. You may contact Dr. Cortes with any questions after hours through the hospital at [phone] or on his cell phone at [phone]. Referrals: Adan Cortes MD [ [facility] STAFF PHYSICIAN] - Equipment/Supplies: Walker Activity:: Elevate Remove Dressings/Wound Care:: Do Not Remove Shower/Bathe:: Cover Diet:: As Tolerated
[2024-09-20] MEDS: ceFAZolin 2 GM/50 ML BAG IVPB (11:17)
[2024-09-20] MEDS: TRANEXAMIC ACID/SOD. CHL. 1,000 MG/100 ML BAG 600 MG IVPB (11:22)
--- NOTE | 2024-09-20 12:43 | DI.RAD_ITS ---
Exam(s) XR HIP LT IN OR EXAM: XR HIP LT IN OR CLINICAL HISTORY: (1) Avascular necrosis of left femur: TECHNIQUE: 2D and realtime digital imaging was performed. CONTRAST MATERIAL: Refer to procedure report. COMPARISON: CR XR HIP LT COMPLETE AP PELVIS from 08/08/2024 FINDINGS: Fluoroscopy was provided for Dr. Cortes during the performance of a left total hip arthroplasty. Please refer to the procedure report for complete details. Ka,r=6.67 mGy IMPRESSION: RADIATION DOSE DELIVERED: 0.0 0.0 0
--- NOTE | 2024-09-20 13:20 | W.ANESPOSTOP ---
Postoperative Evaluation Date, Time and Location Date Performed: 09/20/24 Time Performed: 13:20 Patient Location: PACU Vital Signs Most Recent Imported Vital Signs: Most Recent Vital Signs Temp Pulse Resp BP Pulse Ox 36.2 C L 59 L 18 134/67 94 09/20/24 13:15 09/20/24 13:16 09/20/24 13:16 09/20/24 13:16 09/20/24 13:16 Pain Score Most Recent Pain Score: Most Recent Pain Score Pain Level 0 09/20/24 13:15 Assessment Mental Status: Awake (Alert & Oriented to Patient Baseline) Airway and Respiratory Function: Patent airway with normal (patient baseline) respiratory exam Cardiovascular Function: Hemodynamically Stable Hydration Status: Adequately Hydrated Nausea & Vomiting: No Nausea or Vomiting Pain: Pain is tolerable per patient Peripheral Nerve Block: Patient did not receive a nerve block
[2024-09-20] MEDS: oxyCODONE 5 MG TAB PO (13:47)
--- NOTE | 2024-09-20 14:03 | W.PM.OP ---
Operative Note Operative Note PRE-OP DIAGNOSIS: Left Hip Osteoarthritis POST-OP DIAGNOSIS: same PROCEDURE: Left Anterior Total Hip Arthroplasty with Intraoperative Navigation SURGEON: Adan Cortes TAILING MACHINE OPERATOR: Benita Jamison ANESTHESIA TYPE: General LMA/ETT Refer to Anesthesia Record ESTIMATED BLOOD LOSS: 300 PATHOLOGY: none sent TOURNIQUET TIME: 0 COMPLICATIONS: None Patient was transported to: PACU Patient's condition: stable Implants: 1. Depuy [place] Acetabular Component, 54mm 2. Depuy Acetabular Liner, 11z14am 3. Depuy Actis High Offset Collared Femoral Stem, Size 5 4. Depuy Altrx Ceramic Femoral Head, Size 36+8.5mm Indications: I have seen Juanito in clinic for symptoms of hip arthritis, confirmed with radiographic findings showing severe flattening of the femoral head and superior subluxation. He has exhausted nonoperative methods and was having significant limitations in daily function and desired better function and less pain. I discussed the technical details of a hip replacement. I explained the risks of the procedure to include, but not limited to, bleeding, infection, pain, stiffness, fracture, damage to nerves and vessels, damage to muscles and tendons, loosening, instability, leg length inequality, need for repeat procedure, blood clot and cardiopulmonary demise. Despite these risks, Juanito elected to proceed. Findings: There was significant signs of arthritis throughout the hip with notable synovitis and a large effusion. Procedure Description: Juanito was greeted in the preoperative holding area where the correct side was identified and marked. The consent was reviewed with the patient and signed. The history and physical was updated. All questions were answered. He was taken back to the operating room. A general anesthetic was then administered. The feet were wrapped with cast padding and Coban and then placed into the boot liners and then into the boots. Care was taken to protect the skin and make sure the heels were fully down and the boots were stable. The patient was then positioned onto the HANA table. Both legs were held in a neutral position. SCDs were applied. The patient was then slid down onto a peroneal post. Prophylactic antibiotics in the form of Cefazolin were administered. 1g of Tranxemic Acid was given intravenously within 30 minutes of incision. The left leg was then prepped with Chloraprep and draped in a standard fashion. A second prep with Chloraprep was performed prior to placement of a shower-curtain type drape with Iodine impregnated skin protection. A timeout to confirm correct identity, side and site, procedure, allergies, anesthesia, and medical concerns was performed. An obliquely oriented incision was made starting lateral to the ASIS and running distal over the Tensor Fascia Mami (TFL) muscle belly toward the fibular head, approximately 10cm. The skin and soft tissue was dissected sharply, through Malick?s fascia, and to the fascia of the TFL. With the fascia and superior border of the IT band identified, the fascia was incised with a new knife just above any perforators from the IT band. The TFL muscle belly was bluntly dissected away from the fascia and moved laterally. The fat between TFL and rectus was identified to ensure the dissection was not within the TFL. Blunt dissection created space between abductors and the capsule and retractor was placed over the lateral femoral neck. The fibers of the rectus femoris tendon were identified and these were freed from the anterior capsule. A second cobra retractor was placed around the medial femoral neck. The TFL was further retracted laterally to show the deep fascia. Careful dissection through this layer identified three main crossing vessels of the lateral femoral circumflex. These were cauterized in multiple locations and then cut without any noticeable bleeding. The TFL was further released bluntly from the deep fascia to expose anterior hip capsule and fat The soft tissue orthopaedic retractor was then placed beneath the TFL and against sartorius and medial soft tissues to protect and retract the soft tissues. A T-capsulotomy was then performed starting at the superior lateral acetabulum and moving distally to the intertrochanteric ridge. These capsular flaps were tagged with a No. 1 Ethibond and elevated from within. The capsular flaps were released to the shoulder of the lateral neck and to the lesser trochanter to give excellent visualization of the proximal femur. A neck osteotomy was performed using an oscillating saw based on preoperative templates. This cut started in the shoulder and of the lateral neck and exited medially. The saw was at all times directed medially to avoid injury to the greater trochanter. Gross traction was applied to the leg and the osteotomy opened. The femoral head was removed with a corkscrew, making sure to protect the TFL on its exit. Traction was released after head removal. This was measured on the back table to determine the starting reamer size. Portions of the rectus obscuring visualization were minimally elevated off the superior acetabulum. An anterior retractor was placed over the anterior wall between capsule and labrum and attached to the Gripper retraction system. The femur was rotated to 90 degrees and medial capsule was fully released until the lesser trochanter was palpable and visible; the femur was returned to 30 degrees. A posterior retractor was placed similarly between capsule and labrum. This provided excellent visualization. The contents of the cotyloid fossa were removed with electrocautery and the labrum was removed with a knife and a portion was removed with a rongeur given its calcification. There was a large and dense floor osteophyte. There was erosion of the lateral margin acetabulum from its articulation with the femoral head. Acetabular reaming began with a 50mm reamer. This first reaming was directed anterior to posterior and medial to get down to the true floor and away from where he had been riding with his femoral head. This was inspected and reamed until the true floor was reached. The anterior retractor was then released and entry and exit was provided by traction on the capsular flaps. I then reamed sequentially up to a 54mm reamer where good fit was obtained. The larger reamers were oriented based on anatomical reference of the anterior and lateral dillon to ensure proper abduction and anteversion. Positioning and size was confirmed with the fluoroscopy. A 54mm Depuy [place] acetabular component was selected. The acetabulum was reamed around the periphery with the selected acetabular size to prevent a rim fit. The deep tissues were irrigated. The acetabular component was then impacted in a position of about 40-45 degrees of abduction and 15-20 degrees of anteversion, using the patient?s anatomy as the ultimate landmark. Fluoroscopy was used to confirm this. There was excellent video camera operator of the acetabular component and the inserting handle was removed. The acetabular liner, Depuy [id number] polyethylene liner, was inserted and lined up with the tines of the acetabular component. There was no soft tissue interposition. The liner was then impacted into position and confirmed to be well-seated. A portion of the moni-articular cocktail was then injected around the acetabulum into the capsule and periosteum. This cocktail consisted of 123mg of Ropivacaine, 0.25mg of Epinephrine, 0.04mg of Clonidine, and 15mg of Ketorolac, diluted to 50cc. The leg was rotated to 120 degrees. Any remaining medial capsule was released until the lesser trochanter was easily palpable. A retractor was placed medially. The lateral capsule was further released into the shoulder to allow access to the greater trochanter. A Padilla retractor was placed over the greater trochanter which allowed the trochanter to flip in front of the capsule for excellent exposure. The leg was brought down into maximal extension and 20 degrees of adduction while ensuring there was no impingement on the acetabulum. Any remnant capsule within the trochanter was released. Piriformis and obturator externis were identified and protected. There was excellent access to the proximal femur. The lateral neck remnant was removed with a rongeur. A blunt canal probe was used to identify the canal and trajectory for later broaching. A box osteotome initiated the broach course. A small curved rasp and a curved curette were used to work laterally. Broaching then began with a starter Actis broach. This was inserted manually around the trochanter and into the canal before mallet blows. The broach was seated to a few millimeters below the cut level based on the neck cut and the preoperative template. Sequential broaching was continued with the Swing by Swingse pneumatic broaching device until a tight fit was obtained with good rotational control of the femur. A trial high offset neck was inserted along with a +8.5 trial head. The leg was brought out of extension and adduction and then reduced with traction and internal rotation. The leg was stable anteriorly in a position of 30 degrees of extension and 90 degrees of external rotation. Fluoroscopy was used to ensure there was no fracture and the stem was seated well. Leg lengths were checked with an AP pelvis and pelvic reference points. Reffpedia navigation system was used to confirm appropriate positioning and leg length and offset. Once content with the desired offset and leg lengths, the leg was brought back into extension, external rotation and adduction. The periosteum and surrounding tissue was injected with remaining portion of the moni-articular cocktail. The proximal femur was irrigated as well as the deep tissues. The Depuy Actis high offset collared stem, size 5, was then manually inserted into the proximal femur making sure to control rotation. It was then malleted into position with light blows, giving breaks to allow bone expansion and decrease risk of fracture. The selected Depuy Altrx Ceramic Head, size 36+8.5mm, was then placed onto the clean and dry trunnion and secured with impaction onto the tapered fit. The leg was brought back out of extension and adduction and reduced with traction and internal rotation. Stability was confirmed with no shuck at 90 degrees of external rotation and 30 degrees of extension. No impingement through range of motion arc. Final x-ray images were obtained with fluoroscopy to confirm adequate positioning and no intraoperative fracture. The deep tissues were thoroughly irrigated with Surgiphor, betadine solution. This was allowed to sit in the wound for 3 minutes before being thoroughly irrigated out with normal saline. The capsule was then reapproximated with the previously placed Ethibond sutures. The TFL fascia was finally closed with a No. 2 Stratafix, barbed suture. Deep tissues were then reapproximated with 0 Vicryl and a running 2-0 Vicryl. The skin was closed with a running 4-0 Monocryl in a subcuticular fashion. This was reinforced with skin glue. A Mepilex silver dressing was applied. At the end of the case, all counts were correct. Juanito was transferred to the hospital bed without difficulty and suffering no apparent complication. He has a good prognosis. Physical therapy will start today and without restrictions, weight-bearing as tolerated. His home dosing of Warfarin will be used for DVT prophylaxis. Date of Procedure: 09/20/24
--- NOTE | 2024-09-20 15:05 | PT.INIE ---
PT Notes Visit Reasons: Left hip DJD Physical Therapy Day Surgery Initial Evaluation Date: 09/20/2024 Referring Doctor: Benita Jamison/ Dr Cortes PT Orders: PT CONSULT: s/p Ortho surgery Precautions: WBAT LLE, activities as tolerated ,TEDs x 2 weeks Patient Profile/Admitting Diagnosis: Pt is 64 yo male presenting s/p elective L DEREK under general anesthesia. Post op uncomplicated. PMHX: Avascular necrosis of left femur (Acute) Osteoarthritis of left knee (Acute) DEPO MEDROL 09/08/22 Aortic aneurysm (Chronic) Osteoarthritis of left hip (Acute) Injected: 12/05/2020Tubular adenoma of colon (Acute 07/15/17) Medical History Bundle branch block Gout Metabolic syndrome Peripheral neuropathy History of fracture of right ankle with hardwareHistory of kidney stones Thrombocytopenia A-fib Obesity HTN (hypertension) DM (diabetes mellitus) Surgical History History of total right hip replacement (12/05/20) History of lithotripsy Colonoscopy - MAC (07/15/17) Social History/Home Situation: Pt resides with his mother and step father. he has 3 steps with rails to enter through his garage. He has 1 step from living room to dining room. He reports he is independent with ADL, meal prep , he drives and is self-employed woodworking - small objects. Equipment Owned/DME: FWW, 2 canes and rollator, grab bars near toilet and shower. elevated toilet seat, Subjective: Pt reports he has a FWW at home but he is not sure where it is. He does not want another one as he just got his walker in 2020. He states he will have his sister locate it. He feels confident he can get from the car into his home with the 2 canes. Objective: General Observation: male semireclined on stretcher with ice to left hip . Nursing reports he had pain meds. Mental Status: A+Ox4, cooperative, motivated agreeable to participate Pain:left knee 12/01. Pt denies pain to hip . He notes tightness in quad / hip flexor with standing tasks ROM: [] Right Upper Extremity: WFL shoulder impaired to ~110 degrees Left Upper Extremity: WFL shoulder flexion to ~100 degrees Right Lower Extremity: WFL Left Lower Extremity: hip 90 degrees flexion, knee 5-100 degrees, ankle WNL Strength: [] Right Upper Extremity: 5/5 Left Upper Extremity: 4/5 through available ROM Right Lower Extremity:Hip flexion: 3 /5; hip abduction: 3 /5; hip extension: 3/5; knee extension: 4 /5; knee flexion: 3- /5 ankle DF: 4 /5 ; ankle PF: 4/5 Left Lower Extremity: Hip flexion: 3- /5; hip abduction: 2+ /5; hip extension: 3- /5; knee extension: 3 /5; knee flexion:2+ /5 ankle DF: 3/5 ; ankle PF: 3/5. Sensation: Intact Bed Mobility/Transfers: Supine to sit supervision with increased time. Patient exits bed to the right Sit to stand supervision with cues for hand placement patient prefers 1 upper extremity on walker 1, upper extremity on surface sitting on Stand to sit supervision with cues for hand placement Bed to chair supervision with FWW Gait: Patient ambulated 125 feet with FWW supervision reciprocal pattern increased trunk flexion increased weightbearing through bilateral upper extremities. With cueing patient able to improve trunk extension although reported increased pain in left quad and hip flexor. Pt amb with 2 canes 15 feet with CGA 4pt gait pattern Stairs: 4 steps with 2 rails with step to pattern CGA Balance: Static Sitting: Good Dynamic Sitting: Fair plus Static Standing: Fair plus Dynamic Standing: Fair Special Tests: [] Mobility Limitations Standardized Measure [] [facility] AM-PAC 6 clicks Basic Mobility Inpatient Short Form: [] Raw Score: 21 CMS Score: 28.97% Informed Consent/Education: Patient instructed in purpose of PT consult. Packet containing DEREK exercise protocol has been given to patient. Education and training on initial set of exercises that can be done at home have been completed with patient. Treatment: Therapeutic Activity 49717 : Pt instructed in and able to perform functional transfers from chairs, bed, toilet and simulated car transfer. Pt instructed in dressing don doffing pants required min A to get clothing over toes then pt able to perform. Assessment: Patientis a 64 yo male who presents with clinical signs and symptoms consistent with current/admitting diagnoses that have resulted to mobility limitations, gait instability, generalized weakness, and impairment of motor control as demonstrated by the following impairment level findings: 1. Decreased strength to left LE major muscle groups 2. Impaired standing balance 3. Limitation of joint range of motion in left knee and hip 4. Pain in LLE 5. Impaired Functional activity tolerance Impairments are contributing to the following functional limitations: 1. Inability to safely ambulate without assistive device 2. Increase completion time for mobility ADL performance 3. Increased fall risk 4. Impaired ability to perform stairs safely alone Patient is assessed as a moderate complexity based on the following: History: 64-year-old male with impairment level findings, functional limitations, and past medical history as indicated above Examination: Demonstrable impairment in strength, balance, and mobility level with underlying impairments and functional limitations as documented above Presentation: stable/evolving Decision Making: moderate Goals: N/A. Plan of Care/Treatment Plan: N/A. DISCHARGE RECOMMENDATIONS: Home with HEP and Outpatient PT as indicated TREATMENT CODE/TIME: 50069, 70107/ [id number] Thank you for the opportunity to participate in the care of this patient. Belkys Sims PT [facility]
== END 2024-09-20 15:23 | disposition home or self-care (01) ==
PROVIDERS: Nurse Anesthetist, Certified Registered; PCP Family Medicine; Visit Provider Student in an Organized Health Care Education/Training Program
PROC: (CPT 27130; principal; 2024-09-20 11:00)
DX: M16.12 Unilateral primary osteoarthritis, left hip (principal); E11.42 Type 2 diabetes mellitus with diabetic polyneuropathy; Z79.4 Long term (current) use of insulin; Z79.84 Long term (current) use of oral hypoglycemic drugs; I48.91 Unspecified atrial fibrillation; I10 Essential (primary) hypertension; E66.9 Obesity, unspecified
CPT/HCPCS: 20985; 27130; 36415; 97162; 97530; 73501; 84132; 85610; C1776; J0690; J1100; J2405; J2704

== ENCOUNTER 2024-10-03 15:39 | Outpatient (CLI) | payer MEDICARE, SELFPAY ==
--- NOTE | 2024-10-03 14:15 | DI.RAD_ITS ---
Exam(s) XR HIP LT COMPLETE AP PELVIS EXAM: XR HIP LT COMPLETE AP PELVIS CLINICAL HISTORY: 1ST POST OP S/P L DEREK. TECHNIQUE: 2D digital imaging was performed. Two views. COMPARISON: CR XR HIP LT COMPLETE AP PELVIS from 08/08/2024 XA XR HIP LT IN OR from 09/20/2024 FINDINGS: BONES: No acute fracture is present. No bony destructive lesion is seen. Stable alignment of bilate ral hip prostheses. JOINTS: No dislocation present. The SI joints and pubic symphysis are intact. No significant degenera tive changes. SOFT TISSUE: Heavy vascular calcifications. IMPRESSION: Stable appearance of bilateral hip prostheses. DATA REPOSITORY: RADIATION DOSE DELIVERED:
== END 2024-10-03 15:40 | disposition home or self-care (01) ==
LOC: DIORS 15:39
PROVIDERS: PCP Family Medicine; Referring Provider Family Medicine; Visit Provider Student in an Organized Health Care Education/Training Program
DX: Z96.642 Presence of left artificial hip joint (principal); Z47.1 Aftercare following joint replacement surgery
CPT/HCPCS: 99024; 73502

== ENCOUNTER → 2024-11-03 10:11 | Outpatient (BNVA) | payer MEDICARE, SELFPAY | PROVIDERS: PCP Family Medicine; Referring Provider Family Medicine | DX: Z47.1 Aftercare following joint replacement surgery (principal); Z96.642 Presence of left artificial hip joint | CPT/HCPCS: 99024 ==

== ENCOUNTER 2025-02-16 15:55 | Outpatient (REF) | payer MEDICARE, SELFPAY ==
[2025-02-16 16:14] LABS: HCT 38.7 % (40.0-50.0); HGB 12.6 g/dL (13.5-17.5); MCH 28.7 pg (27.0-33.0); MCHC 32.6 % (32.0-36.0); MCV 88 fL (80-95); MPV 10.5 fL (8.0-11.0); RBC 4.39 10^6/uL (4.36-5.78); RDW 13.9 % (11.8-14.1); WBC 4.02 10^3/uL (4.4-10.8)
[2025-02-16 16:31] LABS: Platelet Count 72 10^3/uL (130-400)
[2025-02-16 16:51] LABS: ALT 23 U/L (16-63); AST 22 U/L (15-37); Albumin 3.9 g/dL (3.4-5.0); Alkaline Phosphatase 65 U/L (46-116); Anion Gap 9.1 mmol/L (3-11); BUN 23 mg/dL (7-18); Bilirubin, Total 0.9 mg/dL (0.2-1.0); CO2 26.9 mmol/L (21.0-32.0); CREATININE 1.2 mg/dL (0.70-1.30); Calcium 9.3 mg/dL (8.5-10.1); Chloride 103 mmol/L (98-107); Glucose 113 mg/dL (74-106); Potassium 4.7 mmol/L (3.5-5.1); Sodium 139 mmol/L (136-145); Total Protein 7.5 g/dL (6.4-8.2)
[2025-02-16 17:03] LABS: Hemoglobin A1C 6.4 % (<5.7)
[2025-02-17 14:42] LABS: Iron 54 ug/dL (65-175); Total Iron Binding Capacity 336 ug/dL (250-450); Transferrin Sat 16 % (20-55)
[2025-02-17 15:21] LABS: Ferritin 44 ng/mL (26-388); Vitamin B12 175 pg/mL (193-986)
== END 2025-02-16 15:56 | disposition home or self-care (01) ==
LOC: NCHCN 15:55
PROVIDERS: PCP Family Medicine; Visit Provider Family Medicine
DX: E11.9 Type 2 diabetes mellitus without complications (principal); Z79.4 Long term (current) use of insulin; I10 Essential (primary) hypertension; D69.6 Thrombocytopenia, unspecified
CPT/HCPCS: 80053; 85027; 82607; 82728; 83036; 83540; 83550

== ENCOUNTER 2025-06-16 18:11 | Outpatient (REF) | payer MEDICARE, SELFPAY ==
[2025-06-16 17:34] LABS: HCT 40.4 % (40.0-50.0); HGB 13.4 g/dL (13.5-17.5); MCH 29.7 pg (27.0-33.0); MCHC 33.2 % (32.0-36.0); MCV 90 fL (80-95); MPV 11.2 fL (8.0-11.0); RBC 4.51 10^6/uL (4.36-5.78); RDW 13.2 % (11.8-14.1); RDW-SD 43.7 fL; WBC 3.83 10^3/uL (4.4-10.8)
[2025-06-16 17:42] LABS: Iron 76 ug/dL (65-175)
[2025-06-16 18:04] LABS: Platelet Count 80 10^3/uL (130-400)
[2025-06-16 18:09] LABS: Anion Gap 8.3 mmol/L (3-11); BUN 27 mg/dL (7-18); CO2 25.7 mmol/L (21.0-32.0); Calcium 10.0 mg/dL (8.5-10.1); Chloride 100 mmol/L (98-107); Estimated GFR 55.09 (mL/min/1.73m2); Glucose 202 mg/dL (74-106); Potassium 5.5 mmol/L (3.5-5.1); Sodium 134 mmol/L (136-145); Vitamin B12 236 pg/mL (193-986)
[2025-06-16 18:10] LABS: Hemoglobin A1C 6.0 % (<5.7)
[2025-06-19 21:20] LABS: CRP, High Sensitivity 1.35 mg/L (See Note)
== END 2025-06-16 18:12 | disposition home or self-care (01) ==
LOC: NCHCN 18:11
PROVIDERS: PCP Family Medicine; Visit Provider Family Medicine
DX: D69.6 Thrombocytopenia, unspecified (principal); E11.9 Type 2 diabetes mellitus without complications; I10 Essential (primary) hypertension
CPT/HCPCS: 80048; 85027; 86141; 82607; 83036; 83540